=== PATIENT | female | born 2000 | race African-American/Black ===

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

== ENCOUNTER 2024-10-25 10:54 | Emergency (ER) | payer OTHER, SELFPAY ==
--- NOTE | ~2024-10-25 | XR_ITS ---
EXAMINATION: XR humerus LT DATE: 10/25/2024 13:30 INDICATION: Left upper limb injury and pain. TECHNIQUE: 3 views of left humerus were obtained. COMPARISON: None. FINDINGS: There is a comminuted fracture of distal humeral diaphysis. The main distal fracture fragme nt demonstrates 27 degrees palmar angulation, 1 cortical width posterior displacement, and 15 mm shor tening. Note that there is no orthogonal view. Joint spaces are normal. No elbow joint effusion. IMPRESSION: 1. Comminuted fracture of distal humeral diaphysis. Reviewed, dictated and finalized at location B.
--- NOTE | ~2024-10-25 | XR_ITS ---
EXAMINATION: XR wrist LT 2V DATE: 10/25/2024 13:31 INDICATION: Left wrist injury. TECHNIQUE: 2 views of left wrist were obtained. COMPARISON: None. FINDINGS: Alignment is normal. No fracture. Joint spaces are normal. IMPRESSION: 1. Normal left wrist. Reviewed, dictated and finalized at location B. IMPRESSION: 1. Normal left wrist.
--- NOTE | ~2024-10-25 | XR_ITS ---
EXAMINATION: XR elbow LT 2V DATE: 10/25/2024 13:30 INDICATION: Left upper limb injury and pain. TECHNIQUE: 2 views of left elbow were obtained. COMPARISON: None. FINDINGS: There is a comminuted fracture of humeral diaphysis. The main distal fracture fragment demo nstrates 27 degrees volar angulation and shortening. Joint spaces are normal. No elbow joint effusion . IMPRESSION: 1. Comminuted fracture of humeral diaphysis. Reviewed, dictated and finalized at location B.
[2024-10-25 11:03] VITALS: BP 107/78; PULSE 72; RESP 16; TEMP 36.6; O2SAT 99
--- NOTE | 2024-10-25 12:22 | ED.UPPEXIN ---
HPI - Extremity Injury (Upper) General Chief Complaint: Extremity Injury, Upper Stated Complaint: fall Time Seen by Provider: 10/25/24 12:02 History of Present Illness HPI narrative: 24-year-old female presenting for evaluation of left upper extremity injury while she slipped and fell forward into the shower. Did not hit her head or lose consciousness. EMS arrived and placed her into a same splint. 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 No medical history, no allergies. No pain medicines prior to arrival. No chest pain, difficulty breathing, headache, vision change, nausea or vomiting. Related Data Home Medications ?Medication ?Instructions ?Recorded ?Confirmed ?Last Taken ?Type citalopram 40 mg tablet mg 07/11/20 Unknown History norethindrone acetate 1 mg-ethinyl tablet 07/11/20 Unknown History estradiol 20 mcg tablet Allergies Allergy/AdvReac Type Severity Reaction Status Date / Time No Known Allergies Allergy Mild Verified 11/12/21 17:02 Review of Systems Review of Systems: As reviewed above in HPI Exam Narrative: GENERAL: Uncomfortable appearing in pain but not any acute distress, answering all questions. Awake alert. HEAD: [Normocephalic, atraumatic.] EYES: [PERRLA and EOMI.] ENT: Nares clear, no rhinorrhea or epistaxis. Mucous membranes moist. NECK: Supple. CHEST: [Clear to auscultation. No respiratory distress.] HEART: [Regular rate and rhythm]. No murmur heard. [Normal peripheral pulses.] ABDOMEN: [Soft, nondistended], [nontender], [No rigidity or guarding] EXTREMITIES: Same splint to the left upper extremity with tenderness to palpation over the left elbow and distal humerus. Wrist without any deformity. Research Nutritionist strength 5/5. 2+ radial pulse. Limitations in range of motion secondary to pain. Mild swelling appreciated in the elbow and upper arm. SKIN: Warm, dry, no rash. NEURO: [No focal deficits]. Alert and oriented [x3.] PSYCH: [Normal mood and affect.] Course Vital Signs Vital signs: Vital Signs Temperature 36.6 C 10/25/24 11:03 Pulse Rate 72 10/25/24 11:03 Respiratory Rate 16 10/25/24 11:03 Blood Pressure 107/78 10/25/24 11:03 Pulse Oximetry 99 10/25/24 11:03 Oxygen Delivery Room Air 10/25/24 11:03 Temperature 36.6 C 10/25/24 11:03 Pulse Rate 74 10/25/24 12:33 Respiratory Rate 18 10/25/24 12:33 Blood Pressure 114/75 10/25/24 15:01 Pulse Oximetry 97 10/25/24 15:01 Oxygen Delivery Room Air 10/25/24 11:03 Procedures Orthopedic Splinting/Casting Injury #1: Splinting/Casting Date: 10/25/24 Splinting/Casting Time: 14:00 Side: left Upper Extremity Injury Location: upper arm Splint: customized in ED (Coaptation splint) Pre-Procedure Neuro Vascular Exam: normal Post-Procedure Neuro Vascular Exam: normal MDM - Extremity Injury (Upper) MDM Narrative Medical decision making narrative: 24-year-old female presenting for mechanical fall in the shower with injury to her left upper extremity. She has tenderness and some swelling over the left upper extremity near the elbow and distal humerus. 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 Normal vital signs. No other appreciable injury or trauma. No head injury. No syncope. X-rays of the left wrist elbow and humerus were obtained and she was provide intramuscular dilaudid with analgesia obtained upon re-evaluation. Patient's x-ray shows a comminuted distal fracture of the left humeral diaphysis with dorsal angulation. Spoke to our orthopedic surgeon here who recommended transfer to a trauma center for evaluation and likely plating given the location and degree of angulation. Coaptation splint was applied, blood work was obtained, patient was provide analgesia, transfer center at [facility] spoken to, patient accepted as a direct ED to ED transfer under Dr. Mooney at [facility]. S ambulance arranged and patient left the department without further issue. Medical Records Attestation: I reviewed the patient's medical records. Lab Data Attestation: I reviewed the patient's lab results. 10/25/24 14:25 10/25/24 14:25 Labs: Lab Results 10/25/24 Range/Units 14:25 WBC 13.0 H (4.5-10.0) K/mm3 RBC 4.42 (4.2-5.4) M/mm3 Hgb 13.5 (12.0-15.0) g/dL Hct 40.4 (37.0-47.0) % MCV 91.4 (80-100) fl MCH 30.5 (26-34) pg MCHC 33.4 (32-36) g/dl RDW 11.9 (11.5-14.5) % Plt Count 260 (150-375) k/mm3 MPV 10.1 (7.4-10.4) fl Immature Gran % (Auto) 0.3 (0-0.5) % Neut % (Auto) 86.0 H (45.5-73.1) % Lymph % (Auto) 9.3 L (18.3-44.2) % Bulloch % (Auto) 3.9 (2.6-8.5) % Eos % (Auto) 0.2 (0-4.4) % Baso % (Auto) 0.3 (0.2-1.2) % Lymph # (Auto) 1.21 (0.9-3.2) K/mm3 Bulloch # (Auto) 0.5 (0.1-0.6) K/mm3 Eos # (Auto) 0.0 (0-0.3) K/mm3 Baso # (Auto) 0.0 (0.0-0.1) K/mm3 Abs Immat Gran (auto) 0.04 H (0.00-0.031) K/mm3 Absolute Neuts (auto) 11.2 H (1.3-6.7) K/mm3 Absolute Nucleated RBC 0.000 (0.0-0.012) K/mm3 Band Neutrophils % Not Reportable Nucleated RBC % 0.0 (0.0-0.2) % Platelet Estimate Adequate (Adequate) % Immature Plt Fraction 3.2 (0.9-11.2) % Schistocytes None seen PT 13.4 (11.1-14.7) Seconds INR 1.0 APTT 24.7 (22.3-36.8) Seconds Sodium 137 (137-145) mmol/L Potassium 4.2 (3.4-5.0) mmol/L Chloride 102 (98-107) mmol/L Carbon Dioxide 23 (22-30) mmol/L Anion Gap 12 (4-12) mmol/L BUN 9 (7-17) mg/dL Creatinine 0.47 L (0.7-1.0) mg/dL Estim Creat Clear Calc 177 ml/min Estimated GFR > 60 (59 - ) Glucose 110 (65-110) mg/dL Calcium 9.2 (8.4-10.2) mg/dL Total Bilirubin 0.8 (0.2-1.3) mg/dL AST 16 (14-36) U/L ALT 19 (6-35) U/L Alkaline Phosphatase 92 (38-126) U/L Total Protein 8.0 (6.3-8.2) g/dL Albumin 4.7 (3.5-5.1) g/dL Serum HCG, Qual Negative Imaging Data Attestation: I personally reviewed and interpreted this imaging study as follows: My impression: Impressions Elbow X-Ray 10/25/24 13:33 IMPRESSION: 1. Comminuted fracture of humeral diaphysis. Humerus X-Ray 10/25/24 13:34 IMPRESSION: 1. Comminuted fracture of distal humeral diaphysis. Wrist X-Ray 10/25/24 13:36 IMPRESSION: 1. Normal left wrist. Discharge Plan Discharge Clinical Impression: Fracture of distal end of left humerus Patient Disposition: Acute Care Hospital Condition: Stable Patient Language: Belarusian Prescriptions: No Action citalopram 40 mg tablet norethindrone ac-eth estradiol 1-20 mg-mcg tablet ondansetron 4 mg tablet,disintegrating 4 mg PO Q8H Qty: 14 0RF Follow-up/Referrals: May Longo APRN [Advanced Practice Nurse] -
[2024-10-25] MEDS: HYDROmorphone HCL INJ (*CRX) 1 MG/ML SYR IM (12:32)
[2024-10-25 12:33] VITALS: PULSE 74; RESP 18; O2SAT 100
[2024-10-25 12:35] VITALS: BP 120/80; O2SAT 99
[2024-10-25 12:47] VITALS: BP 122/82; O2SAT 99
[2024-10-25 13:00] VITALS: BP 118/82; O2SAT 97
--- OUTSIDE RECORDS SUMMARY | 2024-10-25 14:23 | XMS_ITS | Data Portability ---
Author Organization [facility] [place] Address [address] [place] [address] Assessment Encounter Date Assessment Date Assessment LastModified by Organization Details LastModified Time 10/04/2022 10/04/2022 benign breast exam, discussed benign findings. if enlarges significantly will call increased tenderness may be from IUD, avoid caffeine FU AIMEE [email or web address] Not available 10/23/2022 17:06:29 Plan of Treatment Reminders Order Date Submit Date Provider Last Modified By Organization Details Last Modified Time Details Appointments None recorded. Lab hbcab (hepatitis B core Ab) igm, serum 2022 023 [facility] (Lab), [address], [place], [address], 3 21:34:58 HBsAg (hepatitis B surface Ag), serum 2022 023 [facility] (Lab), [address], [place], [address], 3 21:34:57 hepatitis C virus Ab, serum 2022 023 [facility] (Lab), [address], [place], [address], 3 21:34:57 unlisted lab - HIV 1/2 antigen/ant ibody, reflex confirmatio n 2022 023 [facility] (Lab), [address], [place], [address], 3 21:34:57 RPR (rapid plasma reagin), serum 2022 023 [facility] (Lab), [address], [place], [address], 3 21:34:58 hbcab (hepatitis B core Ab) igm, serum 2022 023 [facility] (Lab), [address], [place], [address], 3 21:47:08 HBsAg (hepatitis B surface Ag), serum 2022 023 [facility] (Lab), [address], [place], [address], 3 21:47:07 hepatitis C virus Ab, serum 2022 023 [facility] (Lab), [address], [place], [address], 3 21:47:07 unlisted lab - HIV 1/2 antigen/ant ibody, reflex confirmatio n 2022 023 [facility] (Lab), [address], [place], [address], 3 21:47:07 RPR (rapid plasma reagin), serum 2022 023 [facility] (Lab), [address], [place], [address], 3 21:47:08 Referral None recorded. Procedures None recorded. Surgeries None recorded. Imaging None recorded. Medication Orders metronidazo le 500 mg tablet 2022 023 [id number], [address] [place], [address], 3 14:27:14 Patient TargetsNo targets recorded. Patient InstructionsNo instructions recorded. Reason for Referral None Reported. Results Created Date Observation Date Name Description Value Unit Range Abnormal Flag Note LastModifiedBy Organization Detail LastModifiedTime 06/08/20 22 06/08/2022 BHCG, QUANT ITATI VE B-HCG <0.2 mIU/m L This assay was perfo rmed using [employer] n reage nts and test kits. Value s obtai paty with other assay metho ds or kits canno t be used inter rehman eably . Refer ence Range s: Non-p regna nt, preme nopau renzo women : 0.0-5 .3 mIU/m L Postm enopa usal women : 0.0-7 .0 mIU/m L Noris l Pregn pantera: Gesta adele l Age bHCG Conc. - mIU/m L 3 Weeks 5.8 - 71.7 4 Weeks 9.5 - 750 5 Weeks 217-7 138 6 Weeks 158 - 31,79 5 7 Weeks 3,697 - 162,5 63 8 Weeks 32,06 5 - 149,5 71 9 Weeks 63,80 3 - 151,4 10 10 Weeks 46,50 9 - 186,9 77 12 Weeks 27,83 2 - 210,6 12 14 Weeks 13,95 0 - 62,53 0 15 Weeks 12,03 9 - 70,97 1 16 Weeks 9,040 - 56,45 1 17 Weeks 8,175 - 55,86 8 18 Weeks 8,099 - 58,17 6 Not Available [facility] [address] [place], [address], 06/09/2022 10:37:49 06/09/2006/09/2022 pregn pantera test, urine HCG negati ve Not Available [place] [address], [place], [address], 06/09/2022 16:08:32 09/27/19 23 09/27/2022 CT/GC AND TRICH OMONA S VAGIN UCHE (RRNA ), SWAB chlamydia trachomatis, PCR Negati ve negati ve Not Available [facility] (Lab) [address], [place], [address], 09/28/2022 18:00:16 09/27/19 23 09/27/2022 CT/GC AND TRICH OMONA S VAGIN UCHE (RRNA ), SWAB neisseria gonorrhoeae, PCR Negati ve negati ve Not Available [facility] (Lab) [address], [place], [address], 09/28/2022 18:00:16 09/27/19 23 09/27/2022 CT/GC AND TRICH OMONA S VAGIN UCHE (RRNA ), SWAB trichomonas vaginalis ribosomal RNA (rrna) Negati ve negati ve Not Available [facility] (Lab) [address], [place], [address], 09/28/2022 18:00:16 09/27/19 23 09/27/2022 VAGIN ITIS/ VAGIN OSIS, DNA PROBE jackson sp. detection, direct probe Negati ve negati ve Not Available [facility] (Lab) [address], [place], [address], 09/28/2022 18:00:17 09/27/19 23 09/27/2022 VAGIN ITIS/ VAGIN OSIS, DNA PROBE gardnerella vag. detection, direct probe Negati ve negati ve Not Available [facility] (Lab) [address], [place], [address], 09/28/2022 18:00:17 09/27/19 23 09/27/2022 VAGIN ITIS/ VAGIN OSIS, DNA PROBE trichomonas vag. detection, direct probe Negati ve negati ve Not Available [facility] (Lab) [address], [place], [address], 09/28/2022 18:00:17 09/27/19 23 09/27/2022 HIV 1/2 ANTIG EN/AN TIBOD Y, REFLE X CONFI RMATI ON HIV antigen/anti body Nonrea ctive nonrea ctive HIV-1 antig en and HIV-1 /HIV- 2 antib odies were not detec hardy. No labor atory evide nce of HIV infec tion. Not Available [facility] (Lab) [address], [place], [address], 09/28/2022 21:47:07 09/27/19 23 09/27/2022 HEPAT ITIS C ANTIB SYLVIA SCREE N, REFLE X TO CONFI RMATI ON hepatitis C antibody Non-re active non-re active Antib odies to HCV Not Detec hardy, does not exclu de the possi bilit y of expos ure to HCV. Not Available [facility] (Lab) [address], [place], [address], 09/28/2022 21:47:07 09/27/19 23 09/27/2022 HEPAT ITIS B SURFA CE ANTIG EN hepatitis B surface antigen Non-re active non-re active This assay was perfo rmed using [employer] reage nts and test kits. Value s obtai paty with other assay metho ds or kits canno t be used inter rehman eably . Not Available [facility] (Lab) [address], [place], [address], 09/28/2022 21:47:07 09/27/19 23 09/27/2022 RPR SCREE N/REF RENAE TITER /FTA RPR screen Nonrea ctive nonrea ctive Not Available [facility] (Lab) [address], [place], [address], 09/28/2022 21:47:08 09/27/19 23 09/27/2022 HEPAT ITIS B CORE, IGM hepatitis B core IgM antibody Negati ve negati ve Not Available [facility] (Lab) [address], [place], [address], 09/28/2022 21:47:08 02/03/20 23 02/02/2023 CT/GC AND TRICH OMONA S VAGIN UCHE (RRNA ), URINE chlamydia trachomatis, PCR Negati ve negati ve Not Available [facility] (Lab) [address], [place], [address], 02/03/2023 15:20:50 02/03/20 23 02/02/2023 CT/GC AND TRICH OMONA S VAGIN UCHE (RRNA ), URINE neisseria gonorrhoeae, PCR Negati ve negati ve Not Available [facility] (Lab) [address], [place], [address], 02/03/2023 15:20:50 02/03/20 23 02/02/2023 CT/GC AND TRICH OMONA S VAGIN UCHE (RRNA ), URINE trichomonas vaginalis ribosomal RNA (rrna) Negati ve negati ve Not Available [facility] (Lab) [address], [place], [address], 02/03/2023 15:20:50 05/06/20 23 05/06/2023 HEPAT ITIS B SURFA CE ANTIG EN hepatitis B surface antigen Non-re active non-re active This assay was perfo rmed using [employer] reage nts and test kits. Value s obtai paty with other assay metho ds or kits canno t be used inter rehman eably . Not Available [facility] (Lab) [address], [place], [address], 05/09/2023 21:34:57 05/06/20 23 05/06/2023 HEPAT ITIS C ANTIB SYLVIA SCREE N, REFLE X TO CONFI RMATI ON hepatitis C antibody Non-re active non-re active Antib odies to HCV Not Detec hardy, does not exclu de the possi bilit y of expos ure to HCV. Not Available [facility] (Lab) [address], [place], [address], 05/09/2023 21:34:57 05/06/20 23 05/06/2023 HIV 1/2 ANTIG EN/AN TIBOD Y, REFLE X CONFI RMATI ON HIV antigen/anti body Nonrea ctive nonrea ctive HIV-1 antig en and HIV-1 /HIV- 2 antib odies were not detec hardy. No labor atory evide nce of HIV infec tion. Not Available [facility] (Lab) [address], [place], [address], 05/09/2023 21:34:57 05/06/20 23 05/06/2023 RPR SCREE N/REF RENAE TITER /FTA RPR screen Nonrea ctive nonrea ctive Not Available [facility] (Lab) [address], [place], [address], 05/09/2023 21:34:58 05/06/20 23 05/06/2023 HEPAT ITIS B CORE, IGM hepatitis B core IgM antibody Negati ve negati ve Not Available [facility] (Lab) [address], [place], [address], 05/09/2023 21:34:58 Result Notes None recorded. Problems Name Problem SNOMED Code Status Onset Date Resolution Date Notes Provider Name and Address Organization Details Recorded Time No current problems or disabili ty 979244268 Active Kassandra grossman [facility] 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 1 09:46:18 Problem Notes None recorded. Procedures Surgical History Date Name Laterality Status Provider Name and Address Organization Details Recorded Time 2 IUD Insertion completed CELIO Roth [address], [place], [address], [facility] 06/09/2022 16:18:06 5 removal of silastic tubes from ear completed Kelsie Rodriguez [facility] 09/04/2021 11:13:25 5 tonsilectomy/ adenoids completed Kelsie Rodriguez [facility] 03/28/2020 00:13:43 tonsilectomy/ adenoids completed Kassandra Bynum [facility] 05/26/2022 11:49:09 Imaging Results None recorded. Procedure Notes None recorded. Medical Equipment None Reported. Allergies No known drug allergies Medications Name Sig Start Date Stop Date Status Note LastModified by Organization Details LastModified Time citalopra m 40 mg tablet TAKE ONE TABLET BY MOUTH DAILY AT 6PM 10/04 completed Patient states she is no longer taking Not Available Not Available Not Available fluconazo le 150 mg tablet TAKE 1 TABLET BY MOUTH NOW, REPEAT IN 7 DAYS 05/26 completed Not Available Not Available Not Available citalopra m 10 mg tablet take 1 tablet by oral route every day 08/03 completed Prescrib ed Elsewher e: Yes Loca tion: [facility] M odify By: shaheen cormier DateTime : 10/24/19 09:30:00 AM Not Available Not Available Not Available terconazo le 0.8 % vaginal cream Insert 1 applicat orful every day by vaginal route at bedtime for 3 days. 07/07 completed Not Available Not Available Not Available metronida zole 500 mg tablet TAKE 1 TABLET BY MOUTH EVERY 12 HOURS FOR 7 DAYS 10/04 completed Not Available Not Available Not Available nystatin- triamcino lone 100,000 unit/gram -0.1 % topical ointment Apply by topical route for 7 days. 05/26 completed Not Available Not Available Not Available citalopra m 20 mg tablet TAKE 1 AND 1/2 TABLETS BY MOUTH AT BEDTIME FOR 2 WEEKS THEN TAKE 1 TABLET BY MOUTH AT BEDTIME 08/03 completed Not Available Not Available Not Available triamcino lone acetonide 0.1 % topical ointment APPLY THIN COAT TO AFFECTED AREA TWICE A DAY 07/07 completed Not Available Not Available Not Available nystatin 100,000 unit/gram topical cream APPLY TO AFFECTED AREA TWICE A DAY 07/07 completed Not Available Not Available Not Available norethind jake acetate 1 mg-ethiny l estradiol 20 mcg tablet TAKE 1 TABLET BY MOUTH DAILY 08/03 completed Not Available Not Available Not Available sertralin e 50 mg tablet TAKE 1 TABLET BY MOUTH EVERY DAY active Not Available Not Available No t Available azithromy acosta 500 mg tablet TAKE 4 TABLETS BY MOUTH ONCE 09/04 completed Not Available Not Available Not Available Kyleena 17.5 mcg/24 hr (up to 5 years) 19.5 mg intrauter ine device Take 1 device by intraute rine route. 2021 active Not Available Not Available Not Avai lable Aurovela Fe 1-20 (28) 1 mg-20 mcg (21)/75 mg (7) tablet TAKE 1 TABLET BY MOUTH EVERY DAY 09/27 completed Not Available Not Available Not Available Vitals Date Recorded Body height Systolic blood pressure Diastolic blood pressure Provider Name and Address Organization Details Last Updated DateTime 07/07/2022 156.85 cm 107 mm[Hg] 72 mm[Hg] [facility] 07/07/2022 14:00:15 Date Recorded Body height Systolic blood pressure Diastolic blood pressure Provider Name and Address Organization Details Last Updated DateTime 09/27/2022 156.85 cm 118 mm[Hg] 78 mm[Hg] [facility] 09/27/2022 16:59:45 Date Recorded Body height Body mass index (BMI) Percentile per age and sex Body mass index (BMI) Body weight Systolic blood pressure Diastolic blood pressure Provider Name and Address Organization Details Last Updated DateTime 156.85 cm 98 % 38.7 kg/m2 29201.4 g 115 mm[Hg] 81 mm[Hg] Divine Ríos [facility] 3 14:26:42 Date Recorded Body height Body mass index (BMI) Percentile per age and sex Body mass index (BMI) Body weight Systolic blood pressure Diastolic blood pressure Provider Name and Address Organization Details Last Updated DateTime 3 156.85 cm 97 % 37.4 kg/m2 35336.2 5 g 121 mm[Hg] 82 mm[Hg] Geneva March [facility] 3 11:53:37 Date Recorded Body height Body mass index (BMI) Body mass index (BMI) Percentile per age and sex Body weight Systolic blood pressure Diastolic blood pressure Provider Name and Address Organization Details Last Updated DateTime 3 156.85 cm 37.4 kg/m2 97 % 77625.2 5 g 107 mm[Hg] 22 mm[Hg] Kassandra esparza [facility] 3 11:00:14 Social History Question Answer Notes LastModified by Organizat ion Details LastModified Time Tobacco Smoking Status Never Smoker Stacy grossman, [facility] 05/06/2023 10:42:09 Do You Have An Advance Directive? No Information not available 02/01/2022 What Is Your Level Of Alcohol Consumption? None Information not available 02/01/2022 How Many Years Have You Consumed Alcohol? 0 Information not available 02/01/2022 Are You Blind Or Do You Have Difficulty Seeing? No [email or web address] Information not available 08/03/2021 What Is Your Level Of Caffeine Consumption? Occasional Information not available 02/01/2022 How Much Tobacco Do You Chew? None Information not available 02/01/2022 In The 14 Days Before Symptom Onset, Have You Had Close Contact With A Laboratory-confir med COVID-19 While That Case Was Ill? No Information not available 02/01/2022 In The 14 Days Before Symptom Onset, Have You Had Close Contact With A Person Who Is Under Investigation For COVID-19 While That Person Was Ill? No Information not available 02/01/2022 Have You Been To An Area Known To Be High Risk For COVID-19? No Information not available 02/01/2022 Are You Deaf Or Do You Have Serious Difficulty Hearing? No Information not available 08/03/2021 What Type Of Diet Are You Following? REGULAR [email or web address] Information not available 08/03/2021 Do You Or Have You Ever Used E-cigarettes Or Vape? Never Used Electronic Cigarettes [email or web address] Information not available 05/06/2023 What Is The Highest Grade Or Level Of School You Have Completed Or The Highest Degree You Have Received? [id number] Information not available 02/01/2022 What Is Your Occupation? [employer] Information not available 02/01/2022 What Was The Date Of Your Most Recent Tobacco Screening? 09/04/2021 [email or web address] Information not available 05/06/2023 Do You Use Protection During Sex? No Information not available 02/01/2022 Do You Use Your Seat Belt Or Car Seat Routinely? Yes [email or web address] Information not available 09/04/2021 Do You Have Smoke And Carbon Monoxide Detectors In Your Home? Yes [email or web address] Information not available 09/04/2021 Do You Or Have You Ever Used Smokeless Tobacco? Never Used Smokeless Tobacco [email or web address] Information not available 05/06/2023 How Much Tobacco Do You Smoke? No [email or web address] Information not available 03/28/2020 Do You Feel Stressed (tense, Restless, Nervous, Or Anxious, Or Unable To Sleep At Night)? [id number] [email or web address] Information not available 09/04/2021 Do You Use Any Illicit Or Recreational Drugs? No Information not available 02/01/2022 Do You Use Sunscreen Routinely? Yes [email or web address] Information not available 09/04/2021 How Many Years Have You Smoked Tobacco? 0 Information not available 02/01/2022 Have You Used IV Drugs? No Information not available 02/01/2022 Sex: Female Functional Status Question Answer Note LastModified by Organizat ion Details LastModified Time Do you have difficulty walking or climbing stairs? No [email or web address] Information not available 05/06/2023 Are you able to walk? YESWOREST [email or web address] Information not available 08/03/2021 Are you able to care for yourself? Yes [email or web address] Information not available 05/06/2023 Do you have difficulty dressing or bathing? No [email or web address] Information not available 05/06/2023 What is your exercise level? Occasional [email or web address] Information not available 03/28/2020 Mental Status None recorded. Family History Relationship Description Onset Age of this Age Resolved Age Notes LastModified by Organization Details LastModified Time Maternal Aunt Benign neoplasm of brain [email or web address] Not available 2022 11:46:40 Maternal Aunt Blood coagulation disorder [email or web address] Not available 2022 11:46:41 Maternal Aunt Diabetes mellitus [email or web address] Not available 2022 11:54:50 Maternal Aunt Diabetes mellitus [email or web address] Not available 2022 11:54:53 Maternal Grandmother Benign neoplasm of brain [email or web address] Not available 2022 11:46:41 Maternal Grandmother Seizure disorder [email or web address] Not available 2022 11:46:41 Maternal Grandmother Diabetes mellitus [email or web address] Not available 2022 11:46:41 Maternal Grandmother Malignant tumor of breast [email or web address] Not available 2022 11:46:41 Maternal Grandmother Hypertensive disorder Not available 2022 11:46:41 Mother Malignant tumor of thyroid gland [email or web address] Not available 2022 11:46:41 Mother Cyst of ovary [email or web address] Not available 2022 11:46:41 Mother Posttraumati c stress disorder [email or web address] Not available 2022 11:46:41 Mother Diabetes mellitus [email or web address] Not available 2022 11:54:58 Mother Disorder of thyroid gland [email or web address] Not available 2022 11:46:41 Maternal Uncle Diabetes mellitus [email or web address] Not available 2022 11:46:41 Maternal Grandfather Malignant tumor of colon [email or web address] Not available 2022 11:46:41 Notes:Family history of Canc er, ovarian Maternal aunt: Bleeding disorder, Diabetes mellitus, brain tumor non cancerous Maternal grandfather: Seizure disorder, Cancer, colon Maternal grandmother: brain tumor no cancerous, Diabetes mellitus, Cancer, breast, Hypertension Maternal uncle: Diabetes mellitus Mother: PTSD, Cancer, thyroid, ovarian cyst, Diabetes mellitus Medical History Condition Response Allergies (Food, seasonal, environmental ) N Other N Drug/Latex Allergies/Reactions N Blood Transfusion N Breast Cancer N Dermatologic Disorders N Lung Disease N Defects or Inherited Disease N Breast Problem N Gestational Diabetes N Hematologic disorders N Anesthesia Complications N History of STI N Deep Vein Thrombosis N Polycystic ovary syndrome N Anxiety Disorder Y Arthritis N Polyps N Infertility N Acid Reflux (GERD) N History of abnormal pap N Cancer N Varicosities N Stroke N Neurologic/Epilepsy Y Endometriosis N High Cholesterol N Fibromyalgia N Headaches N Kidney Disease N Heart Problems N Thyroid Problems N Kidney or Bladder Problems N GI Problems N Eating Disorder N Anemia N Art (IVF or FET) N Psychiatric Illness Y Ovarian Cancer N Diabetes N Pulmonary (TB, Asthma) N Hepatitis/Liver Disease N No Past Medical History N Eczema N Urinary Tract Infection N Abuse/Domestic Violence N Asthma N Trauma/Violence N Depression/ depression Y Heart Disease N Pre-Eclampsia N Hypertension N Osteoporosis N Thrombophilias N Gynecological History Statement/Question Response Abnormal Pap N Flow Heavy Date of Last Mammogram Date of LMP 01/29/2023 N Was last menstrual period normal Y STIs/STDs N HPV Vaccine N Duration of Flow (days) 5 Current Control Method IUD Date of control 06/09/2022 Sexually Active? Y Menses Monthly Y Age of first menstrual cycle 11 Date of Last Pap Smear Sexual Problems? N LMP Definite N Obstetrics History GPAL:G 0 P 0 0 0 0 Past Encounters Encounter ID Performer Location Encounter Start Date Encounter Closed Date Diagnosis/Indication Diagnosis SNOMED-CT Code Diagnosis ICD10 Code Diagnosis Note [id number] Rosalva Costello CNM [place] [address] [address] 03/28/2020 10:36:00 03/28/2020 11:40:41 Surveillance of oral contraception 334534368 Z30.41 [id number] Rosalva Costello CNM [place] [address] [address] 08/03/2021 09:37:47 08/03/2021 11:10:57 Venereal disease screening 027684392 Z11.3 urine sent [facility] [id number] Z30.9 gave 5 samples of balcotra may have more if calls [id number] Rosalva Costello CNM [place] [address],[place] [address] 09/04/2021 10:49:24 09/04/2021 11:49:30 Venereal disease screening 582572005 Z11.3 std and affirm sent f/u pending results reviewed vulvar care [id number] CELIO Roth [place] [address],[place] [address] 02/01/2022 13:55:10 02/01/2022 14:49:57 Pain in pelvis 82142397 R10.2 Urine hCG (-) today. Patient would like a bhCG ordered.[place] ppy on OCP for controlSTI endocervic al testing sentVagini tis panel sentBlood STI testing orderedUA today (-)Patient would like a pelvic u/s done due to cramping, u/s ordered.En couraged patient to f/u with PCP about recent fatigue and nausea.RTC for pelvic u/s and f/u appointmen t. Time spent in visit is a total of 35 mins with at least 50% of visit consisting of counseling and review of plan of care. Fatigue 53077104 R53.83 Venereal d isease screening 222220548 Z11.3 Sexually t ransmitted infectious disease 6106510 A64 [id number] Aliya Krause [place] [address],[place] [address] 02/04/2022 13:45:53 02/04/2022 14:26:58 Pain in pelvis 23797693 R10.2 [id number] CELIO Roth [place] [address],[place] [address] 02/10/2022 11:42:54 02/10/2022 12:41:16 Pain in pelvis 69866156 R10.2 Pelvic pain has completely resolved, patient feeling well!We discussed normal pelvic u/s resultShe will call the office if symptoms return Time spent in visit is a total of 15 mins with at least 50% of visit consisting of counseling and review of plan of care. [id number] CELIO Roth [place] [address],[place] [address] 04/27/2022 15:40:36 04/27/2022 16:29:34 Vaginitis 86771169 N76.0 Suspect yeast on examVagini tis panel sentSTI endocervic al testing sentVulvar care guidelines discussed in-depthDi scontinue use of scented toilet paperRTC if symptoms persist past treatment Time spent in visit is a total of 15 mins with at least 50% of visit consisting of counseling and review of plan of care. Venereal d isease screening 436511043 Z11.3 [id number] [facility] [address],[place] [address] 05/26/2022 11:38:13 05/26/2022 15:12:44 Vaginitis 80320757 N76.0 Suspect BV/yeast on examRx sentVagini tis panel sentSTI endocervic al testing sentVulvar care guideline discussed. Discontinu e vagisil wash Contracept ion care management 245449264 Z30.9 Patient would like different form of BC, currently on OCPShe would like to proceed with Kyleena IUDR/B of IUD discussed and accepted by patient (perforati on, infection, etc)She will abstain from intercours e for 2 weeks, continue taking OCP. RTC in 2 weeks for bhcg and IUD insertion. Time spent in visit is a total of 35 mins with at least 50% of visit consisting of counseling and review of plan of care. Venereal d isease screening 216142191 Z11.3 [id number] Jeanette Kenyon [facility] [address],[place] [address] 06/09/2022 15:45:09 06/09/2022 16:25:12 Contraception care management 934247565 Z30.9 Insertion of intrauterine contraceptive device 77843428 Z30.430 She has been counseled on all of the r/b/a of placement of an intrauteri ne device that include but are not limited to uterine perforatio n, injury to cervix, vagina, bladder, and bowel.Risk s of bleeding due to injury or increased irregular bleeding due to progestin effect of the device. Risks of infection would be increased within the first 21 days of placement with concommita nt cervicitis . She understand s that the device will need to be removed in this instance due to increased risk of Pelvic inflammato ry disease. Patient is aware she is at higher risk for STD and if contracted she could lose her fertility. Pt is aware that if occurs that she should contact office immediatel y to rule out ectopic which could be life threatenin g. IUD will also need to be removed and this could cause miscarriag e. Patient also informed that in the event her strings are absent or embedded at the time of removal she may need to have the IUD surgically removed. She was informed of the above and properly consented. IUD placed w/o complicati on. Patient should return to office after next period to check for string placement. Patient to expect irregular bleeding but should be seen in the ED if bleeding increases to soaking a pad an hour for at least 2 hours. She verbalized understand ing.RTC in 1 month for IUD check [id number] CELIO Roth [place] [address] [address] 07/07/2022 13:44:25 07/07/2022 14:29:08 IUD check [id number] Z30.431 (+) IUD strings seen on examHappy with IUDRTC in 1 year or sooner if needed Time spent in visit is a total of 15 mins with at least 50% of visit consisting of counseling and review of plan of care. [id number] CELIO Roth [place] [address] [address] 09/27/2022 16:42:48 09/28/2022 11:12:36 Venereal disease screening [id number] Z11.3 Sexually t ransmitted infectious disease 7050672 A64 Vaginitis 29105938 N76.0 Suspect BV on examVagini tis panel sentSTI endocervic al testing sentBlood STI panel orderedV[facility] care guidelines discussed in-depth-C otton underwear only, Sleep with no underwear, no vaginal washes/soa ps, free and clear laundry products, etcRTC if symptoms persist past treatment Time spent in visit is a total of 25 mins with at least 50% of visit consisting of counseling and review of plan of care. [id number] Esme Kelly MD [place] [address] [address] 10/04/2022 13:55:34 10/05/2022 17:00:43 Mass of left breast [id number] N63.20 [id number] [facility] [address] [address] 02/02/2023 11:46:30 02/02/2023 14:52:59 Venereal disease screening [id number] Z11.3 Opts for urine std screenDecl ined serum std screen Counseled on safe sex, use of condoms encouraged , and partner treatment advised. Time spent in visit is a total of 15 mins with at least 50% of visit consisting of counseling and review of plan of care. [id number] Jeanette Kenyon ALEN [place] [address] [address] 05/06/2023 10:42:01 05/06/2023 11:44:57 Venereal disease screening [id number] Z11.3 gc/ct/tric h testing sentblood STI panel orderedsaf e sexual practices discussed, condom use encouraged will update pt with results when availablen otify the office with any symptoms Time spent in visit is a total of 20mins with at least 50% of visit consisting of counseling and review of plan of care. Sexually t ransmitted infectious disease [id number] A64 Health Concerns Section Related Observation LastModified by Organization Detai ls LastModified Time None Recorded Concern Status LastModified by Organization Details LastModified Time None Recorded Advance Directives Directive N: Payers Encounter Date Sequence Insurance Name Policy Number Policy Mcrae Covered Member ID Mcrae Member ID Guarantor Name 07/07/2022 1 [facility] ON OR AFTER 02/12/21 (MEDICAID REPLACEMENT - HMO) Arabella Plasencia [id number] Arabella Plasencia 09/27/2022 1 [facility] ON OR AFTER 02/12/21 (MEDICAID REPLACEMENT - HMO) Arabella Plasencia [id number] Arabella Plasencia 10/04/2022 1 [facility] ON OR AFTER 02/12/21 (MEDICAID REPLACEMENT - HMO) Arabella Luis Angel [id number] Arabella Luis Angel 02/02/2023 1 [facility] - DOS ON OR AFTER 21 (MEDICAID REPLACEMENT - HMO) Arabella Plasencia [id number] Arabella Luis Angel 05/06/2023 1 [facility] - DOS ON OR AFTER 21 (MEDICAID REPLACEMENT - HMO) Arabella Plasencia [id number] Arabella Luis Angel Notes Date Note Type Note Provider Name and Address Organization Details Recorded Time 07/07/2022 text/html Patient presents for IUD checkFeeling well since insertionNo AUB, denies any pelvic painShe would like a test today just for piece of mind CELIO Roth [address], [place], [address], [facility] 07/07/2022 14:14:00 09/27/2022 text/html 22yoPresents for evaluation of vaginal d/c and odorSymptoms started about 2 weeks agoFishy odor, white d/cSA with steady male partnerKyleena IUD for BCDenies any n/v, fevers, pelvic pain, or flu-like symptoms CELIO Roth [address], [place], [address], [facility] 09/28/2022 09:31:27 10/04/2022 text/html Pt is a 22yo G0 here for a breast problem. She complains of bilateral breast pain for months and noticed a left lump just today and it is more tender there. Kyleena since May. No other breast changes. Lump is pea sized. Last mammogram: RASHAUN Kelly MD [address], [place], [address], [facility] 10/23/2022 17:06:34 02/02/2023 text/html Here today for updated STD screen due to unfaithful partner.Neg sx's Neg pain of abd/pelvis/flankNeg urinary sx'sNeg GI sx'sNeg N/V/F/C/DNeg Vag d/c, odor, irritation, itching CELIO Lo- [address], [place], [address], [facility] 02/02/2023 14:28:23 05/06/2023 text/html 22yopresents for STI testingreceived a text for [employer] that she may have been exposed to gonorrheashe was last SA 01/2023no symptomsneg vaginal symptomsneg pelvic painneg n/v/f kyleena IUD for BC CELIO Roth [address], [place], [address], [facility] 05/06/2023 11:44:36 OBGyn Episode No OBEpisode recorded.
--- OUTSIDE RECORDS SUMMARY | 2024-10-25 14:23 | XMS_ITS | Clinical Summary ---
Author Organization [facility] Address [address] [place] [id number] Care Team Providers Care Program And Research Coordinator Name Role Phone May Longo [facility] Primary Care Provider + Allergies No known active allergies Medications No known medications Social History Tobacco Use Types Packs/Day Years Used Date Smoking Tobacco: Never Smokeless Tobacco: Never Comments Unknown Sex and Gender Information Value Date Recorded Sex Assigned at Not on file Legal Sex Female 6:51 PM CDT Gender Identity Not on file Sexual Orientation Not on file Last Filed Vital Signs Vital Sign Reading Time Taken Comments Blood Pressure 122/87 08/17/2022 1:21 PM POLE SETTER Pulse 70 08/17/2022 1:21 PM POLE SETTER Temperature 36.4 C (97.6 F) 08/17/2022 1:21 PM POLE SETTER Respiratory Rate 18 08/17/2022 1:21 PM POLE SETTER Oxygen Saturation 100% 08/17/2022 1:21 PM POLE SETTER Inhaled Oxygen Concentration - - Weight 97.5 kg (215 lb) 08/17/2022 1:21 PM POLE SETTER Height 157.5 cm (5' 2 ) 08/17/2022 1:21 PM POLE SETTER Body Mass Index 39.32 08/17/2022 1:21 PM POLE SETTER Plan of Treatment Health Maintenance Due Date Last Done Comments Annual Physical 2005 HPV Vaccines (2 - 2-dose series) 09/20/2014 03/20/2014 Meningococcal B Vaccine (1 of 2 - Standard) 2018 Hepatitis C 2020 DTaP, Tdap and Td Vaccines (7 - Td or Tdap) 03/20/2024 03/20/2014, 03/29/2007, 05/19/2005, Additional history exists COVID-19 Vaccine ( season) 2024 12/02/2020, 11/11/2020 Influenza Adult (#1) 2024 05/30/2020 Cervical Cancer Screening Pap Smear (Age 21 to 29) Every 3 Years 08/03/2024 08/03/2021 Cervical Cancer Screening 08/03/2024 Hepatitis B Vaccines Completed 07/13/2003, 02/12/2003, 2002, Additional history exists Pneumococcal Vaccine: Pediatrics (0 to 5 Years) and At-Risk Patients (6 to 64 Years) Aged Out 06/19/2004, 2002, 2002, Additional history exists No longer eligible based on patient's age to complete this topic Meningococcal Vaccine Completed 05/30/2020, 014 RSV Immunizations Under 20 Months Aged Out No longer eligible based on patient's age to complete this topic Insurance [employer] [place] [address] [address] Care Teams Program And Research Coordinator Relationship Specialty Start Date End Date May Longo, SAUSAGE MACHINE OPERATOR- [address] [address] PCP - General NURSE PRACTITIONER 08/15/21
--- OUTSIDE RECORDS SUMMARY | 2024-10-25 14:23 | XMS_ITS | Clinical Summary ---
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 Gender Identity Not on file Sexual Orientation Not on file Plan of Treatment Health Maintenance Due Date Last Done Comments Hepatitis C Virus (HCV) Screening 2002 Human Papillomavirus (HPV) Immunization (2 - 2-dose series) 09/20/2014 03/20/2014 Meningococcal B Immunization (1 of 2 - Standard) 2018 Pap Smear 2023 Influenza Immunization (#1) 2024 05/30/2020 SARS-COV-2 Immunization ( season) 2024 12/02/2020, 11/11/2020 Respiratory Syncytial Virus (RSV) Immunization (Adult) (1 - 1-dose 75+ series) 2077 Hepatitis B Immunization Completed 003, 02/12/2003, 2002, Additional history exists Pneumococcal Immunization Combined Aged Out 06/19/2004, 2002, 2002, Additional history exists No longer eligible based on patient's age to complete this topic Polio (IPV) Immunization Discontinued 007, 05/19/2005, 2002, Additional history exists Hepatitis A Immunization Discontinued 12/20/2007, 03/15 Measles Mumps Rubella (MMR) Immunization Discontinued 12/20/2007, 05/14/2003 Varicella Immunization Discontinued 12/20/2007, 2002 DTaP/Tdap/Td Immunization Discontinued 2013, 03/29/2007, 05/19/2005, Additional history exists TdaP Immunization Completed 03/20/2014 Meningococcal Immunization (ACWY) Completed 05/30/2020, 03/20/2014 Rotavirus Immunization Aged Out No lo nger eligible based on patient's age to complete this topic Insurance [employer] on file
--- OUTSIDE RECORDS SUMMARY | 2024-10-25 14:24 | XMS_ITS | Data Portability ---
Author Organization [facility] [email or web address], Main Office Address [address] [place] [address] Assessment No assessment recorded. Plan of Treatment Reminders Order Date Submit Date Provider Last Modified By Organization Details Last Modified Time Details Appointments None recorded. Lab lipid panel, serum 2022 023 [facility], [address] [place] [address], [address], 3 09:09:59 TSH, serum, reflex free T4 2022 023 [email or web address] [facility], [address] [place] [address], [address], 3 09:09:59 HbA1c (hemoglobin A1c), blood 2022 023 [email or web address] [facility], [address] [place] [address], [address], 3 09:09:58 CMP, serum or plasma 2022 023 [email or web address] [facility], [address] [place] [address], [address], 3 09:09:58 CBC w/ auto diff 2022 023 [email or web address] [facility], [address] [place], [address], 3 09:09:58 Referral None recorded. Procedures None recorded. Surgeries None recorded. Imaging home sleep study - *Please call patient to schedule* 2022 023 [facility], [address] [place], [address], 3 10:36:25 Medication Orders sertraline 50 mg tablet [address] [facility]Pharmacy #[id number], [address] [place], [address], 3 15:15:43 sertraline 50 mg tablet [address] [facility]/Pharmacy #[id number], [address] [place], [address], 3 16:23:36 Patient TargetsNo targets recorded. Patient Instructions Encounter Date Encounter Id Patient Instructions Last Modified By Organization Details Last Modified Time 10/27/2022 [id number] 6 week follow up depression/anxiet y, sleep study. Not available 10/27/2022 16:27:24 12/08/2022 [id number] 4 mo fu anxiety/depressio n/sleeping. Not available 12/08/2022 15:15:35 04/06/2023 [id number] FU in 6 mo for anxiety/depressio n/sleep apnea Not available 04/06/2023 11:04:44 Reason for Referral None Reported. Results Created Date Observation Date Name Description Value Unit Range Abnormal Flag Note LastModifiedBy Organization Detail LastModifiedTime 05/22/20 21 05/22/2021 PPD (abdullahi fied prote in deriv ative ), skin test TB Not Available [facility] Frank [address] [facility], [place], [address], 05/22/2021 11:47:22 08/16/19 22 08/15/2021 CT, angio gram, chest , w/ contr ast No observ ation record ed. [id number] [facility] (Lab) [facility] [place], [address], 10/13/2022 23:12:04 08/17/19 23 08/17/2022 XR, knee No observ ation record ed. [id number] [facility], [place], [address], 10/13/2022 23:12:04 11/17/19 23 11/10/2022 home sleep study No observ ation record ed. [facility] [address] [place], [address], 11/16/2022 10:36:25 12/07/19 23 11/10/2022 home sleep study No observ ation record ed. [facility] [address] [place], [address], 12/08/2022 18:25:03 01/08/20 23 01/04/2023 polys omnog brittany, diagn ostic , 6 yrs or older No observ ation record ed. Not Available 2022 21:45:38 Result Notes None recorded. Problems Name Problem SNOMED Code Status Onset Date Resolution Date Notes Provider Name and Address Organization Details Recorded Time Obsessive-com pulsive disorder 791651053 Active 2020 Not Available [facility] 3 23:07:58 Depressive disorder 06417727 Active 2020 Not Available [facility] 3 23:07:58 Posttraumatic stress disorder 27956667 Active 2020 Not Available [facility] 3 23:07:58 Anxiety 57540578 Active 2020 Not Available [facility] 3 23:07:58 Spasm of back muscles 648817169 Active 2022 May Longo NP [address] [facility], [address] [address], [place], [address] , [place] - [facility] 3 16:20:21 Sleep apnea 17654045 Active 2022 May Longo NP [address] [facility], [address], [place], [address] , [place] - [facility] [employer] 16:25:23 Notes:May Longo NP [facility] home sleep study 11/10/22 AI = 2 [facility] diagnostic sleep study 01/04/23 AI = 0.2, REM AI = 1 Medical History: Depression/OCD/PTSD/Anxiety Obesity Snoring Procedure History: IUD placement Problem Notes None recorded. Procedures Surgical History Date Name Laterality Status Provider Name and Address Organization Details Recorded Time Remove tonsils and adenoids completed May Longo NP [address] [facility], [facility] [address], [place], [address], [facility] [employer] [facility] [employer] [facility] 10/27/2022 16:24:58 Imaging Results Imaging Date Name Status LastModified by Organiz ation Details LastModified Time 08/17/2022 XR, knee completed [id number] [place], [address], 10/13/2022 23:12:04 08/15/2021 CT, angiogram, chest, w/ contrast completed [id number] [facility] (Lab) [address] [place], [address], 10/13/2022 23:12:04 11/10/2022 home sleep study completed [facility] [address] [place], [address], 11/16/2022 10:36:25 11/10/2022 home sleep study completed [facility] [address] [place], [address], 12/08/2022 18:25:03 01/04/2023 polysomnogram , diagnostic, 6 yrs or older completed Information not available 01/11/2023 21:45:38 Procedure Notes None recorded. Medical Equipment None Reported. Allergies No known drug allergies Medications Name Sig Start Date Stop Date Status Note LastModified by Organization Details LastModified Time citalopram 40 mg tablet TAKE ONE TABLET BY MOUTH DAILY AT 6PM 10/27 completed Not Available Not Available Not Available fluconazole 150 mg tablet TAKE 1 TABLET BY MOUTH NOW, REPEAT IN 7 DAYS 10/27 completed Not Available Not Available Not Available Tubersol 5 tub. unit/0.1 mL intradermal injection solution Inject 0.1 mL every day by intraderm al route for 1 day. 10/27 completed Not Available Not Available Not Available terconazole 0.8 % vaginal cream INSERT 1 APPLICATO RFUL VAGINALLY EVERY DAY AT BEDTIME FOR 3 DAYS 10/27 completed Not Available Not Available Not Available metronidazo le 500 mg tablet TAKE 1 TABLET BY MOUTH EVERY 12 HOURS FOR 7 DAYS 10/27 completed Not Available Not Available Not Available citalopram 20 mg tablet TAKE 1 AND 1/2 TABLETS BY MOUTH AT BEDTIME FOR 2 WEEKS THEN TAKE 1 TABLET BY MOUTH AT BEDTIME 05/22 completed Not Available Not Available Not Available triamcinolo ne acetonide 0.1 % topical ointment APPLY THIN COAT TO AFFECTED AREA TWICE A DAY 10/27 completed Not Available Not Available Not Available nystatin 100,000 unit/gram topical cream APPLY TO AFFECTED AREA TWICE A DAY 10/27 completed Not Available Not Available Not Available norethindro ne acetate 1 mg-ethinyl estradiol 20 mcg tablet TAKE 1 TABLET BY MOUTH DAILY 10/27 completed Not Available Not Available Not Available sertraline 50 mg tablet TAKE 1 TABLET BY MOUTH EVERY DAY active Not Available Not Available No t Available azithromyci n 500 mg tablet TAKE 4 TABLETS BY MOUTH ONCE 10/27 completed Not Available Not Available Not Available Aurovela Fe 1-20 (28) 1 mg-20 mcg (21)/75 mg (7) tablet TAKE 1 TABLET BY MOUTH EVERY DAY 05/22 completed Not Available Not Available Not Available Vitals Date Recorded Body mass index (BMI) Body height Oxygen saturation Oxygen saturation in Arterial blood by Pulse oximetry Heart rate Body temperature Body weight Systolic blood pressure Diastolic blood pressure Provider Name and Address Organization Details Last Updated DateTime 1 33.8 kg/m2 157.48 cm 99 % 99 % 79 /min 98.5 [degF] 11600.5 9 g 116 mm[Hg] 78 mm[Hg] Not Available [facility] 3 23:06:17 Date Recorded Body height Provider Name an d Address Organization Details Last Updated DateTime 08/26/2021 157.48 cm Not Available [facility] 3 23:06:18 Date Recorded Body height Body mass index (BMI) Body mass index (BMI) Percentile per age and sex Body weight Body temperature Heart rate Oxygen saturation Oxygen saturation in Arterial blood by Pulse oximetry Respiratory rate Systolic blood pressure Diastolic blood pressure Provider Name and Address Organization Details Last Updated DateTime 3 157.48 cm 38.8 kg/m2 98 % 62269.5 8 g 98.2 [degF] 88 /min 99 % 99 % 16 /min 102 mm[Hg] 70 mm[Hg] May Londono RN [facility] [email or web address] 3 15:59:19 Date Recorded Body height Body mass index (BMI) Body mass index (BMI) Percentile per age and sex Body weight Body temperature Respiratory rate Heart rate Oxygen saturation Oxygen saturation in Arterial blood by Pulse oximetry Pain severity - 0-10 verbal numeric rating [Score] - Reported Systolic blood pressure Diastolic blood pressure Provider Name and Address Organization Details Last Updated DateTime 3 157.48 cm 37.7 kg/m2 98 % 29436.7 3 g 97.7 [degF] 16 /min 73 /min 98 % 98 % 2 110 mm[Hg] 76 mm[Hg] May Londono RN [facility] [email or web address] 3 14:53:24 Date Recorded Body height Body mass index (BMI) Body mass index (BMI) Percentile per age and sex Body weight Body temperature Heart rate Respiratory rate Oxygen saturation Oxygen saturation in Arterial blood by Pulse oximetry Pain severity - 0-10 verbal numeric rating [Score] - Reported Systolic blood pressure Diastolic blood pressure Provider Name and Address Organization Details Last Updated DateTime 3 157.48 cm 37.9 kg/m2 98 % 62832.0 2 g 96.6 [degF] 58 /min 16 /min 98 % 98 % 0 116 mm[Hg] 80 mm[Hg] May Londono RN [facility] [email or web address] 3 14:05:42 Social History Question Answer Notes LastModified by Organizat ion Details LastModified Time Tobacco Smoking Status Never Smoker Not Available [facility] 10/13/2022 23:04:52 Do You Have An Advance Directive? No Information not available 04/06/2023 Do You Wear A Helmet When Biking? No [id number] Information not available 10/13/2022 Is Blood Transfusion Acceptable In An Emergency? Yes Information not available 04/06/2023 What Is Your Level Of Caffeine Consumption? Occasional [id number] Information not available 10/13/2022 What Is Your Code Status? Full Code Information not available 04/06/2023 In The 14 Days Before Symptom Onset, Have You Had Close Contact With A Laboratory-confir med COVID-19 While That Case Was Ill? No Information not available 12/08/2022 In The 14 Days Before Symptom Onset, Have You Had Close Contact With A Person Who Is Under Investigation For COVID-19 While That Person Was Ill? No Information not available 12/08/2022 Are You Currently Employed? Yes Information not available 12/08/2022 What Type Of Diet Are You Following? REGULAR [id number] Information not available 10/13/2022 What Is The Highest Grade Or Level Of School You Have Completed Or The Highest Degree You Have Received? [id number] [id number] Information not available 10/13/2022 What Is Your Occupation? [employer] Information not available 12/08/2022 Have There Been Any Changes To Your Family Or Social Situation? No Information no t available 04/06/2023 Do You Use Insect Repellent Routinely? No Information not available 12/08/2022 Where [facility] You Live? [facility] Information not available 12/08/2022 Do You Have A Medical Power Of Envelope Maker? No Information not available 04/06/2023 How Many Children Do You Have? 0 Information not available 12/08/2022 Do You Have Any Pets? Yes Information not available 12/08/2022 Do You Use Protection During Sex? Always Information not available 12/08/2022 What Is Your Relationship Status? Single [id number] Information not available 10/13/2022 Do You Use Your Seat Belt Or Car Seat Routinely? Yes [id number] Information not available 10/13/2022 Are You Sexually Active? Yes Information not available 12/08/2022 Do You Have Smoke And Carbon Monoxide Detectors In Your Home? Yes [id number].[id number] Information not available 10/13/2022 Are There Any Smokers In Your House? No Information not available 12/08/2022 Do You Participate In Social Media? No [id number] Information not available 10/13/2022 Do You Feel Stressed (tense, Restless, Nervous, Or Anxious, Or Unable To Sleep At Night)? [id number] Information not available 12/08/2022 Do You Use Any Illicit Or Recreational Drugs? No [id number] Information not available 10/13/2022 Do You Use Sunscreen Routinely? No Information not available 12/08/2022 Has Tobacco Cessation Counseling Been Provided? No [id number] Information not available 10/13/2022 Have You Recently Traveled Abroad? No Information not available 12/08/2022 Do You Have Any Dietary Restrictions? No [id number].[id number] Information not available 10/13/2022 Do You Or Have You Ever Used Any Other Forms Of Tobacco Or Nicotine? No [id number].[id number] Information not available 10/13/2022 Sex: Unknown Functional Status Question Answer Note LastModified by Organizat ion Details LastModified Time What is your exercise level? Occasional [id number] Information not available 10/13/2022 Mental Status None recorded. Family History Relationship Description Onset Age of this Age Resolved Age Notes LastModified by Organization Details LastModified Time Maternal Grandfather Malignant tumor of colon [id number] Not available 10/13/2022 23:05:36 Maternal Grandmother Malignant tumor of breast [id number] Not available 10/13/2022 23:05:36 Maternal Aunt Malignant tumor of breast [id number] Not available 10/13/2022 23:05:36 Mother Malignant tumor of thyroid gland [id number] Not available 10/13/2022 23:05:36 Mother Hypertensive disorder [id number] Not available 10/13/2022 23:05:36 Notes:Don't know dads sign Medical History Condition Response ANXIETY DISORDER Y DEPRESSION (INCLUDING POST ) Y INSOMNIA Y Gynecological History Statement/Question Response Flow Moderate Date of LMP 02/13/2023 STIs/STDs Y Dislike of Light during Menstrual Headac he N Do your menstrual headaches get severe N Duration of Flow (days) 3 Most Recent Mammogram Current Control Method IUD Age at Menarche 13 Breast Problems no How many live births 0 Date of Last Colonoscopy Frequency of Cycle (Q days) 28 Most Recent Bone Density Sexually Active? Y Do you get headaches during your period N Date of Last Pap Smear Discharge none Obstetrics History GPAL:G 0 P 0 0 0 0 Immunizations Vaccine Type Date Status Note Provider Nam e and Address Organization Details Recorded Time meningococcal ACWY, unspecified formulation 4 completed Not Available [facility] 10/13/2022 23:11:32 Tdap 4 completed Not Available [facility] 10/13/2022 23:11:32 HPV, unspecified formulation 4 completed Not Available [facility] 10/13/2022 23:11:33 varicella 8 completed Not Available [facility] 10/13/2022 23:11:33 Hep A, pediatric, unspecified formulation 8 completed Not Available [facility] 10/13/2022 23:11:33 MMR 8 completed Not Available [facility] 10/13/2022 23:11:33 Hep A, pediatric, unspecified formulation 7 completed Not Available [facility] 10/13/2022 23:11:33 IPV 7 completed Not Available [facility] 10/13/2022 23:11:33 DTaP 7 completed Not Available [facility] 10/13/2022 23:11:33 IPV 5 completed Not Available [facility] 10/13/2022 23:11:33 Hib, unspecified formulation 5 completed Not Available [facility] 10/13/2022 23:11:34 DTaP 5 completed Not Available [facility] 10/13/2022 23:11:34 pneumococcal conjugate PCV 7 4 completed Not Available [facility] 10/13/2022 23:11:34 Hep B, unspecified formulation 3 completed Not Available [facility] 10/13/2022 23:11:34 varicella 3 completed Not Available [facility] 10/13/2022 23:11:34 MMR 3 completed Not Available [facility] 10/13/2022 23:11:34 Hep B, unspecified formulation 3 completed Not Available [facility] 10/13/2022 23:11:34 pneumococcal conjugate PCV 7 3 completed Not Available [facility] 10/13/2022 23:11:35 Hib, unspecified formulation 3 completed Not Available [facility] 10/13/2022 23:11:35 DTaP 3 completed Not Available [facility] 10/13/2022 23:11:35 Hib, unspecified formulation 3 completed Not Available [facility] 10/13/2022 23:11:35 DTaP 3 completed Not Available [facility] 10/13/2022 23:11:35 IPV 3 completed Not Available [facility] 10/13/2022 23:11:35 IPV 2 completed Not Available [facility] 10/13/2022 23:11:35 Hib, unspecified formulation 2 completed Not Available [facility] 10/13/2022 23:11:36 DTaP 2 completed Not Available [facility] 10/13/2022 23:11:36 Hep B, unspecified formulation 2 completed Not Available [facility] 10/13/2022 23:11:36 Past Encounters Encounter ID Performer Location Encounter Start Date Encounter Closed Date Diagnosis/Indication Diagnosis SNOMED-CT Code Diagnosis ICD10 Code Diagnosis Note [id number] [facility] Frank [address] [place] [address] 05/22/2021 00:00:00 05/22/2021 11:57:53 [id number] [facility] Frank [address] [place] [address] 08/26/2021 00:00:00 08/26/2021 11:51:56 [id number] May Longo NP [address] [address] 10/27/2022 15:29:10 10/27/2022 16:35:48 Depressive disorder 85452871 F32.A Citalopram no longer works for her since used off and on from age 16 yo. Anxiety 36995689 F41.9 Sertraline 50 mg po daily. Fu in 6 weeks. Needs to see therapist for coping techniques . Spasm of back muscles 20 8419451 M62.830 Look online for upper back stretches. Anemia screening 0811481 07 Z13.0 Diabetes m ellitus screening 195179963 Z13.1 Thyroid di sorder screening 913078458 Z13.29 Hyperlipid emia screening 362542305 Z13.220 Sleep apnea 85254658 G47 .30 [id number] May Longo NP [address] [address] 12/08/2022 14:38:06 12/08/2022 15:18:07 Anxiety 35824287 F41.9 Sertraline 50 mg po daily. FU in 4 mo. [id number] May Longo NP [address] [address] 04/06/2023 13:56:08 04/06/2023 14:25:35 Anxiety 03996167 F41.9 Sertraline 50 mg po daily. FU in 4 mo. Sleep apnea 25055135 G47 .30 sleep study negative for sleep apnea. Depressive disorder 3548 9007 F32.A Citalopram no longer works for her since used off and on from age 16 yo.On sertraline 50 mg po daily. Health Concerns Section Related Observation LastModified by Organization Detai ls LastModified Time None Recorded Concern Status LastModified by Organization Details LastModified Time None Recorded Advance Directives Directive N: Payers Encounter Date Sequence Insurance Name Policy Number Policy Mcrae Covered Member ID Mcrae Member ID Guarantor Name 10/27/2022 1 [facility] - DOS ON OR AFTER 21 (MEDICAID REPLACEMENT - HMO) Arabella Plasencia [id number] Arabella Plasencia 12/08/2022 1 [facility] - DOS ON OR AFTER 21 (MEDICAID REPLACEMENT - HMO) Arabella Plasencia [id number] Arabella Plasencia 04/06/2023 1 [facility] - DOS ON OR AFTER 21 (MEDICAID REPLACEMENT - HMO) Arabella Plasencia [id number] Arabella Plasencia Notes Date Note Type Note Provider Name and Address Organization Details Recorded Time 10/27/2022 text/html Here to discuss depression and anxiety. Was on citalopram 40 mg po daily since age 16. Cut it cold turkey in november 2021. Was going to [facility]. Changed therapist 6 times and was tired doing that. However was told needed to see therapist to get to see psychiatrist. So did not go back. Feeling like meds needed as having trouble getting out of bed, having motivation. Feeling like she wants to lie down and sleep all day. Doesn't want to go out of the the house or see anyone. Believes she had been overstimulated with things at work and was having panic attack- new [employer] and lots of people quitting. Lack of structure. Not having predictable work day. Patient believes she is autistic and plans to go to a clinic for evaluation herself. Sleep apnea as child. Had T/A removed. Still snoring loud, fatigued, lack of motivation from being tired. May Longo NP [address], [address], [place], [address], [employer] 10/27/2022 16:28:18 12/08/2022 text/html Here for 6 week fu. Sleep study done at home- inconclusive. Getting in lab sleep study december 21. Excited to see what is going on. Anxiety/depression- Feeling much better and happier on the sertraline 50 mg po daily. Setting reminder to take daily. Has motivation and energy. May Longo NP [address], [address], [place], [address], [employer] 12/08/2022 15:16:22 04/06/2023 text/html Here for 4 mo fu on meds Anxiety/depression- Feeling better with sertraline 50 mg po daily. Feeling more positive outlook. Not as sad. Not tearful. Gets upset still, but not to severe as it was previously. Recently through a breakup. Found out boyfriend was cheating on her with several others. Has been good. 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 [employer]- Lives within 60 miles of school. Needs a note to not have to live on campus. Patient is concerned about dorms with mental health, wants to do good in class and have good rest. Not have emotional instability. Sleep apnea- never got results from sleep study. May Longo NP [address] [facility], [facility] [address], [place], [address], [place] - [facility] [employer] [facility] 04/06/2023 14:21:52 OBGyn Episode No OBEpisode recorded.
[2024-10-25 14:43] LABS: Prothrombin Time 13.4 Seconds (11.1-14.7)
[2024-10-25 14:44] LABS: Partial Thromboplastin Time 24.7 Seconds (22.3-36.8)
[2024-10-25 14:48] LABS: Basophils Percent Auto 0.3 % (0.2-1.2); Eosinophils Percent Auto 0.2 % (0-4.4); Hematocrit 40.4 % (37.0-47.0); Hemoglobin 13.5 g/dL (12.0-15.0); Immature Granulocyte Absolute 0.04 K/mm3 (0.00-0.031); Immature Granulocyte Percent A 0.3 % (0-0.5); Immature Platelet Fraction Pct 3.2 % (0.9-11.2); Lymphocytes Absolute Auto 1.21 K/mm3 (0.9-3.2); Lymphocytes Percent Auto 9.3 % (18.3-44.2); Mean Corpuscular HGB Conc 33.4 g/dl (32-36); Mean Corpuscular Hemoglobin 30.5 pg (26-34); Mean Corpuscular Volume 91.4 fl (80-100); Mean Platelet Volume 10.1 fl (7.4-10.4); Monocytes Absolute Auto 0.5 K/mm3 (0.1-0.6); Monocytes Percent Auto 3.9 % (2.6-8.5); Neutrophils Absolute Auto 11.2 K/mm3 (1.3-6.7); Platelet Count Result 260 k/mm3 (150-375); Red Blood Count 4.42 M/mm3 (4.2-5.4); Red Cell Distribution Width 11.9 % (11.5-14.5)
[2024-10-25 14:49] LABS: Alanine Aminotransferase 19 U/L (6-35); Albumin Level 4.7 g/dL (3.5-5.1); Alkaline Phosphatase 92 U/L (38-126); Anion Gap 12 mmol/L (4-12); Aspartate Amino Transferase 16 U/L (14-36); Bilirubin,Total 0.8 mg/dL (0.2-1.3); Blood Urea Nitrogen 9 mg/dL (7-17); Calcium 9.2 mg/dL (8.4-10.2); Carbon Dioxide 23 mmol/L (22-30); Chloride 102 mmol/L (98-107); Estimated CRCL calculation 177 ml/min; Estimated Glomerular Filt Rate > 60; Glucose 110 mg/dL (65-110); Potassium 4.2 mmol/L (3.4-5.0); Sodium 137 mmol/L (137-145)
[2024-10-25] MEDS: HYDROmorphone HCL INJ (*CRX) 1 MG/ML SYR 0.5 MG IV PUSH (14:52)
[2024-10-25 15:01] VITALS: BP 114/75; O2SAT 97
[2024-10-25 15:16] LABS: Platelet Estimate Adequate (Adequate); Schistocytes None Seen
[2024-10-25 15:21] LABS: SPREG INTERNAL CONTROL Positive; Serum Qual hCG Negative
== END 2024-10-25 15:40 | disposition short-term general hospital (02) ==
LOC: ANHED 12:52
PROVIDERS: Emergency Provider Student in an Organized Health Care Education/Training Program
DX: S49.192A Other physeal fracture of lower end of humerus, left arm, initial encounter for closed fracture (principal); W18.2XXA Fall in (into) shower or empty bathtub, initial encounter
CPT/HCPCS: 29105; 36415; 73060; 73070; 73100; 80053; 84703; 85025; 85055; 85610; 85730; 96372; 96374; 99285; A4565; J1171

== ENCOUNTER 2025-06-07 12:05 | Emergency (ER) | payer OTHER, SELFPAY ==
--- NOTE | ~2025-06-07 | XR_ITS ---
Examination: XR chest 2V Clinical History: CP Comparison: None Technique: PA and Lateral Findings: Cardiomediastinal silhouette normal size and configuration. Lungs clear. No acute bony abnormality. IMPRESSION: 1. No acute cardiopulmonary findings. Reviewed, dictated and finalized at location R.
--- OUTSIDE RECORDS SUMMARY | 2025-06-07 12:08 | XMS_ITS | Clinical Summary ---
Author Organization [facility] Address [address] [place] [address] Care Team Providers Care Head Of Physics Name Role Phone Donta, May Hobbs [facility] Primary Care Provider + Allergies No known active allergies Medications No known medications Social History Tobacco Use Types Packs/Day Years Used Date Smoking Tobacco: Never Smokeless Tobacco: Never Comments Unknown Sex and Gender Information Value Date Recorded Sex Assigned at Female 11/05/2024 7:28 AM CDT Legal Sex Female 6:51 PM CDT Gender Identity Female 11/05/2024 7:28 AM CDT Sexual Orientation Bisexual 11/05/2024 7: 28 AM CDT Last Filed Vital Signs Vital Sign Reading Time Taken Comments Blood Pressure 122/87 08/17/2022 1:21 PM YOUTH CORRECTIONS OFFICER Pulse 70 08/17/2022 1:21 PM YOUTH CORRECTIONS OFFICER Temperature 36.4 C (97.6 F) 08/17/2022 1:21 PM YOUTH CORRECTIONS OFFICER Respiratory Rate 18 08/17/2022 1:21 PM YOUTH CORRECTIONS OFFICER Oxygen Saturation 100% 08/17/2022 1:21 PM YOUTH CORRECTIONS OFFICER Inhaled Oxygen Concentration - - Weight 97.5 kg (215 lb) 08/17/2022 1:21 PM YOUTH CORRECTIONS OFFICER Height 157.5 cm (5' 2) 08/17/2022 1:21 PM YOUTH CORRECTIONS OFFICER Body Mass Index 39.32 08/17/2022 1:21 PM YOUTH CORRECTIONS OFFICER Plan of Treatment Health Maintenance Due Date Last Done Comments Annual Physical 2005 HPV Vaccines (2 - 2-dose series) 09/20/2014 03/20/2014 Meningococcal B Vaccine (1 of 2 - Standard) 2018 Hepatitis C 2020 DTaP, Tdap and Td Vaccines (7 - Td or Tdap) 03/20/2024 03/20/2014, 03/29/2007, 05/19/2005, Additional history exists Cervical Cancer Screening Pap Smear (Age 21 to 29) Every 3 Years 08/03/2024 08/03/2021 Cervical Cancer Screening 08/03/2024 COVID-19 Vaccine ( season) 2025 12/02/2020, 11/11/2020 Influenza Adult (#1) 2025 05/30/2020 Hepatitis B Vaccines Completed 07/13/2003, 02/12/2003, 2002, Additional history exists Pneumococcal Vaccine: Pediatrics (0 to 5 Years) and At-Risk Patients (6 to 49 Years) Aged Out 06/19/2004, 2002, 2002, Additional history exists No longer eligible based on patient's age to complete this topic Meningococcal Vaccine Completed 05/30/2020, 014 Hepatitis A Vaccines Aged Out No long er eligible based on patient's age to complete this topic RSV Immunizations Under 20 Months Aged Out No longer eligible based on patient's age to complete this topic Insurance [employer] [place] Care Teams Head Of Physics Relationship Specialty Start Date End Date May Longo, PARTITION NOTCHER- [address] [id number] PCP - General NURSE PRACTITIONER 08/15/21
--- OUTSIDE RECORDS SUMMARY | 2025-06-07 12:08 | XMS_ITS | Clinical Summary ---
Author Organization [facility] [employer] Address [address] [place] [address] Care Team Providers Care Assistant Refinery Operator Name Role Phone None, Physician Primary Care Provider Unavailabl e Source Comments [facility] [employer],non-owned Affiliates and Associated Physician Practices is amultiple site organization consisting of ambulatory clinics and hospital sitesin [place], [place], [place] and [place]. This disclosure is being madepursuant to the Care Everywhere program and may not contain all information available regarding this patient. Last updated 18.[facility] [employer] [employer] Allergies No known active allergies Medications * Be aware that medications may not be up to date on this document. Alwaysverify current medications with the patient. Cholecalciferol (VITAMELTS VITAMIN D) 1000 UNITS TBDP Take 1,000 Units by mouth once daily. 30 Tab 2 5 Active sertraline (Zoloft) 100 MG tablet Take 1 (one) tablet by mouth once daily 5 Active buPROPion XL 24hr (Wellbutrin-XL) 150 MG tablet Take 1 (one) tablet by mouth once daily 5 Active oxyCODONE, immediate release, (Roxicodone) 5 MG tabletIndicatio ns:Closed fracture of shaft of left humerus, unspecified fracture morphology, initial encounter Take 1 (one) tablet by mouth every 4 hours as needed 28 tablet 11/09/2024 9:21 AM CDT 5 Active Additional Information Patient not taking.Reported on 12/17/2024 acetaminophen (Tylenol) 500 MG tablet Take 2 (two) tablets by mouth every 6 hours Maximum allowable Acetaminophen amount = 4 Grams (4000 mg) / 24 hours. 90 tablet 1 11/09/2024 9:21 AM CDT Active aspirin EC (Ecotrin) 81 MG tablet Take 1 (one) tablet by mouth once daily 70 tablet 11/09/2024 9:21 AM CDT 5 Active diphenhydrAMINE (Benadryl Allergy) 25 MG capsule Take 1 (one) capsule by mouth every 6 hours as needed for Itching Active docusate sodium (Colace) 100 MG capsule Take 1 (one) capsule by mouth once daily 60 capsule 1 11/09/2024 9:21 AM CDT 5 Active polyethylene glycol 3350 (MiraLax) 17 g packet Take 17 (seventeen) g by mouth once daily 5 Active Additional Information Patient not taking.Reported on 12/17/2024 sennosides (Senokot) 8.6 MG tablet Take 2 (two) tablets by mouth at bedtime 60 tablet 1 11/09/2024 9:21 AM CDT 5 Active Additional Information Patient not taking.Reported on 12/17/2024 cyclobenzaprine (Flexeril) 10 MG tablet Take 1 (one) tablet by mouth 3 times daily as needed for Muscle Spasms 30 tablet 11/09/2024 9:21 AM CDT 5 Active Active Problems Problem Noted Date Diagnosed Date Fall, initial encounter 10/26/2024 Closed fracture of shaft of left humerus, unspecified fracture morphology, initial encounter 10/26/2024 Mild vitamin D deficiency 09/05/2014 Overweight 08/23/2014 Overview (06/22/2015): Encounters Date Type Department Care Team Description 2025 2:03 PM CDT - 2025 11:59 PM CDT Hospital Encounter [facility] DIAGNOSTIC RAD [facility] [address] [place] [address] Lina Minor, BIOMASS BOILER OPERATOR-HATCH TENDER Discharge Disposition: Home or Self Care 2025 1:45 PM CDT Office Visit [facility] [address] [place] [id number] Caprice Wheatley MD McCutchen, Kailey J, BIOMASS BOILER OPERATOR-LISANDRA Closed fracture of shaft of left humerus with routine healing, unspecified fracture morphology, subsequent encounter (Primary Dx) 2025 Travel 04/16/2025 Orders Only [facility] [address] [place] [id number] Lina Minor, LUCIA-LISANDRA Closed fracture of shaft of left humerus with routine healing, unspecified fracture morphology, subsequent encounter from Last 3 Months Family History Medical History Relation Name Comments Diabetes Father Hypercholesterolemia Father Hypertension Father Hypercholesterolemia Maternal Grandfather Diabetes Maternal Grandmother Hypercholesterolemia Maternal Grandmother Hypertension Maternal Grandmother Obesity Maternal Grandmother Develop ed overweight after pituitary tumor. Thyroid Disease Maternal Grandmother Eating Disorders Mother Had anorexi a as adolescent Obesity Mother Increased weigh t only since developed thyroid cancer. Thyroid Disease Mother Relation Name Status Comments Father Maternal Grandfather Maternal Grandmother Mother Social History Tobacco Use Types Packs/Day Years Used Date Smoking Tobacco: Never Tobacco Cessation:Counseling Given: Not Answered Alcohol Use Standard Drinks/Week Comments Not Currently 0 (1 standard drink = 0.6 oz pur e alcohol) AUDIT-C Answer Date Recorded Q1: How often do you have a drink containing alcohol? Never 11/08/2024 Q2: How many drinks containi ng alcohol do you have on a typical day when you are drinking? Patient does not drink Q3: How often do you have si x or more drinks on one occasion? Never 11/08/2024 PHQ-2 Answer Date Recorded Patient Health Questionnaire-2 Score 2 2025 Comments No Sex and Gender Information Value Date Recorded Sex Assigned at Female 10/28/2024 12:35 PM CDT Legal Sex Female 5:41 AM ENVELOPE STUFFER Gender Identity Gender Non-conforming 10/28/2024 12:35 PM CDT Sexual Orientation Not on file Last Filed Vital Signs Vital Sign Reading Time Taken Comments Blood Pressure 102/66 11/09/2024 5:48 PM CDT Pulse 102 11/09/2024 5:48 PM CDT Temperature 36.7 C (98 F) 11/09/2024 8:31 AM CDT Respiratory Rate 16 11/09/2024 8:31 AM CDT Oxygen Saturation 95% 11/09/2024 8:31 AM CDT Inhaled Oxygen Concentration - - Weight 103 kg (227 lb) 01/28/2025 9:49 AM CDT Height 157.5 cm (5' 2) 01/28/2025 9:49 AM CDT Body Mass Index 41.52 01/28/2025 9:49 AM CDT Plan of Treatment Health Maintenance Due Date Last Done Comments HPV VACCINE (1 - 3-dose series) 2017 CHLAMYDIA/GONORRHEA SCREENING 2018 MENINGOCOCCAL (Group B) VACCINE SHARED DECISION-MAKING (1 of 2 - Standard) 2018 HEPATITIS C SCREENING 05/08/2020 DTAP/TDAP/TD VACCINES (1 - Tdap) 2021 HEPATITIS B VACCINE (1 of 3 - 19+ 3-dose series) 2021 PAP SMEAR 2023 COVID-19 VACCINE (3 - 2024-2 6 season) 2025 12/02/2020, 11/11/2020 INFLUENZA VACCINE (#1) 2025 05/30/2020 ZOSTER VACCINE (1 of 2) 2052 HIV SCREENING Completed 05/06/2023 DEPRESSION SCREENING Completed 11/19/2024 HIB VACCINE Aged Out No longer eligi ble based on patient's age to complete this topic MENINGOCOCCAL GROUPS A/C/Y/W VACCINE Aged Out No longer eligible b ased on patient's age to complete this topic PNEUMOCOCCAL VACCINE Aged Out No long er eligible based on patient's age to complete this topic Goals Goal Patient Goal Type Associated Problems Recent Progress Patient-Stated? Author Mobility General No Ashly Romeo, RN Note: Expected end date: 01/11/2025 The goal is to maintain or improve your mobility at the optimum level for you. Interventions: Plan activities to conserve energy Mobility General No Apple Feliciano Note: Expected end date: WBAT The goal is to maintain or improve your mobility at the optimum level for you. Interventions: Perform independent activity per your ability Medical Devices Implanted Type Area Detention Officer Device Identifier Shelf Expiration Date Model / Serial / Lot Plate 10 Hl Precontr Lmt Cntct Tpr Head - Sna Implanted:Qty: 1 on 11/08/2024 by Caprice Wheatley MD at [facility] Left: El[employer] 06/14/2032 [id number] / NA / [id number] Screw 2.7mm 5mm 18mm Ft Cortx Slf-Tap - Sna Implanted:Qty: 1 on 11/08/2024 by Caprice Wheatley MD at [facility] Left: [employer] [id number] / NA / NA Screw 2.7mm 5mm 22mm 2.5mm Ft Slf-Tap - Sna Implanted:Qty: 1 on 11/08/2024 by Caprice Wheatley MD at [facility] Left: [employer] [id number] / NA / NA Screw 3.5mm 2.9mm 24mm T15 Ft Plv - Sna Implanted:Qty: 1 on 11/08/2024 by Caprice Wheatley MD at [facility] Left: [employer] [id number] / NA / NA Screw 3.5mm 2.9mm 26mm T15 Ft Slf-Tap - Sna Implanted:Qty: 2 on 11/08/2024 by Caprice Wheatley MD at [facility] Left: [employer] 212.109 / NA / NA Screw 3.5mm 6mm 22mm 2.5mm Ft Slf-Tap - Sna Implanted:Qty: 3 on 11/08/2024 by Caprice Wheatley MD at [facility] Left: [employer] 204.822 / NA / NA Screw 3.5mm 6mm 24mm 2.5mm Ft Slf-Tap - Sna Implanted:Qty: 1 on 11/08/2024 by Caprice Wheatley MD at [facility] Left: [employer] 204.824 / NA / NA Procedures Procedure Name Priority Date/Time Associated Diagnosis Comments XR HUMERUS LEFT 2VW OR MORE Routine 2025 2:09 PM CDT Closed fracture of shaft of left humerus with routine healing, unspecified fracture morphology, subsequent encounter from Last 3 Months Results * XR Humerus Left 2Vw or More (2025 2:09 PM CDT) Anatomical Region Laterality Modality Upper Extremity Radiographic Esme ging 2025 2:21 PM CDT Impressions 2025 2:22 PM CDT IMPRESSION: Unchanged Fracture alignment. > Interpreting Provider: Aime Kennedy MD on 2025 2:22 PM Narrative 2025 2:22 PM CDT PROCEDURE: XR HUMERUS LEFT 2VW OR MORE DATE/TIME OF EXAM: 2025 2:09 PM CLINICAL INFORMATION: None relevant/not provided if blank. Indication: S42.302D: Closed fracture of shaft of left humerus with routine healing, unspecified fracture morphology, subsequent encounter Additional History: COMPARISON: 01/28/2025. TECHNIQUE: Distal humeral shaft fracture fixation with a plate and screws is again demonstrated. The hardware is intact and the alignment is unchanged. Procedure Note Aime Kennedy MD - 2025 PROCEDURE: XR HUMERUS LEFT 2VW OR MORE DATE/TIME OF EXAM: 2025 2:09 PM CLINICAL INFORMATION: None relevant/not provided if blank. Indication: S42.302D: Closed fracture of shaft of left humerus withroutine healing, unspecified fracture morphology, subsequent encounter Additional History: COMPARISON: 01/28/2025. TECHNIQUE: Distal humeral shaft fracture fixation with a plate and screws is again demonstrated. The hardware is intact and the alignment is unchanged. IMPRESSION: Unchanged Fracture alignment. > Interpreting Provider: Aime Kennedy MD on 2025 2:22 PM Lina Minor BIOMASS BOILER OPERATOR-HATCH TENDER DIAGNOSTIC IMAGING O RDERABLES Final Result from Last 3 Months Insurance [facility] Advance Directives * Full Code (Latest Code Status on File) Date Activated Date Inactivated Comments 11/08/2024 11:39 AM 11/09/2024 8:13 PM Care Teams Assistant Refinery Operator Relationship Specialty Start Date End Date None, Physician PCP - General 10/25/24
--- NOTE | 2025-06-07 12:09 | ECG_ITS ---
Test Date: 2025-06-07 12:13:28 Measurements Intervals Allison Rate: 92 P: 50 TN: 160 QRS: 19 QRSD: 88 T: -24 QT: 343 QTc: 426 Interpretive Statements SINUS RHYTHM POSSIBLE LEFT ATRIAL ENLARGEMENT ST-T WAVE ABNORMALITY IN ANT/INF LEADS- CONSIDER ISCHEMIA ABNORMAL ECG No previous ECG available for comparison Electronically Signed On 06-07-2025 12:55:20 CDT by Marin Wolfe D.O.
[2025-06-07 12:11] VITALS: BP 117/68; PULSE 91; RESP 18; TEMP 36.8; O2SAT 100
[2025-06-07 13:19] LABS: Hematocrit 40.1 % (37.0-47.0); Hemoglobin 13.3 g/dL (12.0-15.0); Immature Granulocyte Percent A 0.3 % (0-0.5); Lymphocytes Absolute Auto 0.88 K/mm3 (0.9-3.2); Mean Corpuscular HGB Conc 33.2 g/dl (32-36); Mean Corpuscular Hemoglobin 29.9 pg (26-34); Mean Corpuscular Volume 90.1 fl (80-100); Nucleated Red Blood Cells Absolute Auto 0.000 K/mm3 (0.0-0.012); Nucleated Red Blood Cells Perc 0.0 % (0.0-0.2); Platelet Count Result 319 k/mm3 (150-375); Red Blood Count 4.45 M/mm3 (4.2-5.4); White Blood Count 7.5 K/mm3 (4.5-10.0)
[2025-06-07 13:30] LABS: INR 1.0; Prothrombin Time 13.6 Seconds (11.1-14.7)
[2025-06-07 13:31] LABS: Partial Thromboplastin Time 29.6 Seconds (22.3-36.8)
[2025-06-07] MEDS: SODIUM CHLORIDE 0.9% IV 1,000 ML 999 ML IV CONT (13:34)
--- OUTSIDE RECORDS SUMMARY | 2025-06-07 13:35 | XMS_ITS | Data Portability ---
Author Organization [facility], Main Office Address [address] [place] [address] Assessment No assessment recorded. Plan of Treatment Reminders Order Date Submit Date Provider Last Modified By Organization Details Last Modified Time Details Appointments None recorded. Lab lipid panel, serum 2022 023 [id number] [facility], [address] [place], [address], 3 09:09:59 TSH, serum, reflex free T4 2022 023 [id number] [facility], [address] [place] [address], [address], 3 09:09:59 HbA1c (hemoglobin A1c), blood 2022 023 [email or web address] [facility], [address] [place], [address], 3 09:09:58 CMP, serum or plasma 2022 023 [facility], [address] [place], [address], 3 09:09:58 CBC w/ auto diff 2022 023 [email or web address] [facility], [address] [place], [address], 3 09:09:58 Referral None recorded. Procedures None recorded. Surgeries None recorded. Imaging home sleep study - *Please call patient to schedule* 2022 023 [facility], [address] [place], [address], 3 10:36:25 Medication Orders sertraline 50 mg tablet 2022 023 [id number], [address] [place], [address], 3 15:15:43 sertraline 50 mg tablet 2022 023 [id number], [address] [place], [address], 3 16:23:36 Patient TargetsNo targets recorded. Patient InstructionsNo instructions recorded. Reason for Referral None Reported. Results Created Date Observation Date Name Description Value Unit Range Abnormal Flag Note LastModifiedBy Organization Detail LastModifiedTime 05/22/20 21 05/22/2021 PPD (abdullahi fied prote in deriv ative ), skin test TB Not Available [facility] [address], [place], [address], 05/22/2021 11:47:22 08/16/19 22 08/15/2021 CT, angio gram, chest , w/ contr ast No observ ation record ed. [id number] [facility] (Lab) [address] [place], [address], 10/13/2022 23:12:04 08/17/19 23 08/17/2022 XR, knee No observ ation record ed. [id number] [facility], [place], [address], 10/13/2022 23:12:04 11/17/19 23 11/10/2022 home sleep study No observ ation record ed. [facility] [address] [place], [address], 11/16/2022 10:36:25 12/07/19 23 11/10/2022 home sleep study No observ ation record ed. [facility] [address] [place], [address], 12/08/2022 18:25:03 01/08/20 23 01/04/2023 polys omnog brittany, diagn ostic , 6 yrs or older No observ ation record ed. Not Available 2022 21:45:38 Result Notes None recorded. Problems Name Problem SNOMED Code Status Onset Date Resolution Date Notes Provider Name and Address Organization Details Recorded Time Obsessive-co mpulsive disorder 435452105 Active 2020 Not Available [facility] 3 23:07:58 Depressive disorder 81518164 Active 2020 Not Available [facility] 3 23:07:58 Post-traumat ic stress disorder 55041708 Active 2020 Not Available [facility] 3 23:07:58 Anxiety 13654395 Active 2020 Not Available [facility] 3 23:07:58 Spasm of back muscles 769585823 Active 2022 May Longo NP [address], [address] , [employer] 3 16:20:21 Sleep apnea 11900448 Active 2022 May Longo NP [address], [address] , [employer] [facility] 3 16:25:23 Notes:May Longo NP [facility] home sleep study 11/10/22 AI = [address] [facility] diagnostic sleep study 01/04/23 AI = 0.2, REM AI = 1 Medical History: Depression/OCD/PTSD/Anxiety Obesity Snoring Procedure History: IUD placement Problem Notes None recorded. Procedures Surgical History Date Name Laterality Status Provider Name and Address Organization Details Recorded Time Remove tonsils and adenoids completed May Longo NP [address] [facility] [address], [place], [address], [place] [facility] 10/27/2022 16:24:58 Imaging Results None recorded. Procedure Notes None [...] Not Available Vitals Date Recorded Body height Provider Name an d Address Organization Details Last Updated DateTime 08/26/2021 157.48 cm Not Available [facility] 3 23:06:18 Date Recorded Body height Body mass index (BMI) Body mass index (BMI) [Percentile] Per age and sex Body weight Body temperature Heart rate Oxygen saturation Oxygen saturation in Arterial blood by Pulse oximetry Respiratory rate Systolic And Diastolic Provider Name and Address Organization Details Last Updated DateTime 3 157.48 cm 38.8 kg/m2 98 % 95518.5 8 g 98.2 [degF] 88 /min 99 % 99 % 16 /min 102/70 mm[Hg] May Londono RN [facility] 3 15:59:19 Date Recorded Body height Body mass index (BMI) Body mass index (BMI) [Percentile] Per age and sex Body weight Body temperature Respiratory rate Heart rate Oxygen saturation Oxygen saturation in Arterial blood by Pulse oximetry Pain severity - 0-10 verbal numeric rating [Score] - Reported Systolic And Diastolic Provider Name and Address Organization Details Last Updated DateTime 3 157.48 cm 37.7 kg/m2 98 % 02656.7 3 g 97.7 [degF] 16 /min 73 /min 98 % 98 % 2 110/76 mm[Hg] May Londono RN [facility] 3 14:53:24 Date Recorded Body height Body mass index (BMI) Body mass index (BMI) [Percentile] Per age and sex Body weight Body temperature Heart rate Respiratory rate Oxygen saturation Oxygen saturation in Arterial blood by Pulse oximetry Pain severity - 0-10 verbal numeric rating [Score] - Reported Systolic And Diastolic Provider Name and Address Organization Details Last Updated DateTime 3 157.48 cm 37.9 kg/m2 98 % 15482.0 2 g 96.6 [degF] 58 /min 16 /min 98 % 98 % 0 116/80 mm[Hg] May Londono RN [facility] 3 14:05:42 Date Recorded Body mass index (BMI) Body height Oxygen saturation Oxygen saturation in Arterial blood by Pulse oximetry Heart rate Body temperature Body weight Systolic And Diastolic Provider Name and Address Organization Details Last Updated DateTime 1 33.8 kg/m2 157.48 cm 99 % 99 % 79 /min 98.5 [degF] 79707.5 9 g 116/78 mm[Hg] Not Available [facility] 23:06:17 Social History Question Answer Notes LastModified by Organizat ion Details LastModified Time Tobacco Smoking Status Never Smoker Not Available [facility] 10/13/2022 23:04:52 Do You Have An Advance Directive? No Information not available 04/06/2023 Do You Wear A Helmet When Biking? No [id number] Information not available 10/13/2022 Is Blood Transfusion Acceptable In An Emergency? Yes Information not available 04/06/2023 What Is Your Level Of Caffeine Consumption? Occasional [id number] Information not available 10/13/2022 What Is Your [...] Was Ill? No Information not available 12/08/2022 What Type Of Diet Are You Following? REGULAR [id number] Information not available 10/13/2022 What Is The Highest Grade Or Level Of School You Have Completed Or The Highest Degree You Have Received? [id number] [id number] Information not available 10/13/2022 Have There Been Any Changes To Your Family Or Social Situation? No Information no t available 04/06/2023 Do You Use Insect Repellent Routinely? No Information not available 12/08/2022 Where Do You Live? [facility] Information not available 12/08/2022 Do You Have A Medical Power Of C D Area Supervisor? No Information not available 04/06/2023 How Many Children Do You Have? 0 Information not available 12/08/2022 Do You Have Any Pets? Yes Information not available 12/08/2022 Do You Use Protection During Sex? Always Information not available 12/08/2022 What Is Your Relationship Status? Single [id number] Information not available 10/13/2022 Do You Use Your Seat Belt Or Car Seat Routinely? Yes [id number] Information not available 10/13/2022 Are You Sexually Active? Yes Information not available 12/08/2022 Do You Have Smoke And Carbon Monoxide Detectors In Your Home? Yes [id number].[id number] Information not available 10/13/2022 Are There Any Smokers In Your House? No Information not available 12/08/2022 Do You Participate In Social Media? No [id number].224140 [id number] Information not available 10/13/2022 Do You Use Sunscreen Routinely? No Information not available 12/08/2022 Has Tobacco Cessation Counseling Been Provided? No [id number].[id number] 3309 Information not available 10/13/2022 Have You Recently Traveled Abroad? No Information not available 12/08/2022 Do You Have Any Dietary Restrictions? No [id number].[id number] 3041 Information not available 10/13/2022 Sex: Unknown Functional Status Question Answer Note LastModified by [email or web address] ion Details LastModified Time Do you use any illicit or recreational drugs? No [id number] Information not available 10/13/2022 Do you or have you ever used any other forms of tobacco or nicotine? No MIGRATION.[id number] 026 Information not available 10/13/2022 Are you currently employed? Yes Information not available 12/08/2022 What is your occupation? [employer] Information not available 12/08/2022 What is your exercise level? Occasional [id number] Information not available 10/13/2022 Mental Status Question Answer Note LastModified by Organization D etails LastModified Time Do you feel stressed (tense, restless, nervous, or anxious, or unable to sleep at night)? [id number] Information not available 12/08/2022 Family History Relationship Description Onset Age of this Age Resolved Age Notes LastModified by Organization Details LastModified Time Maternal Grandfather Malignant neoplasm of colon [id number] Not available 10/13/2022 23:05:36 Maternal Grandmother Malignant neoplasm of breast [id number].057 [id number] Not available 10/13/2022 23:05:36 Maternal Aunt Malignant neoplasm of breast [id number].630 [id number] Not available 10/13/2022 23:05:36 Mother Malignant neoplasm of thyroid gland MIGRATION.265 [id number] Not available 10/13/2022 23:05:36 Mother Hypertensive disorder [id number].[id number] Not available 10/13/2022 23:05:36 Notes:Don't know dads [...] ACWY, unspecified formulation 4 completed Not Available [facility] 10/13/2022 23:11:32 Tdap 4 completed Not Available [facility] 10/13/2022 23:11:32 HPV, unspecified formulation 4 completed Not Available [facility] 10/13/2022 23:11:33 varicella 8 completed Not Available [facility] 10/13/2022 23:11:33 Hep A, pediatric, unspecified formulation 8 completed Not Available [facility] 10/13/2022 23:11:33 MMR 8 completed Not Available [facility] 10/13/2022 23:11:33 Hep A, pediatric, unspecified formulation 7 completed Not Available [facility] 10/13/2022 23:11:33 IPV 7 completed Not Available [facility] 10/13/2022 23:11:33 DTaP 7 completed Not Available [facility] 10/13/2022 23:11:33 IPV 5 completed Not Available [facility] 10/13/2022 23:11:33 Hib, unspecified formulation 5 completed Not Available [facility] 10/13/2022 23:11:34 DTaP 5 completed Not Available [facility] 10/13/2022 23:11:34 pneumococcal conjugate PCV 7 4 completed Not Available [facility] 10/13/2022 23:11:34 Hep B, unspecified formulation 3 completed Not Available [facility] 10/13/2022 23:11:34 varicella 3 completed Not Available [facility] 10/13/2022 23:11:34 MMR 3 completed Not Available [facility] 10/13/2022 23:11:34 Hep B, unspecified formulation 3 completed Not Available [facility] 10/13/2022 23:11:34 pneumococcal conjugate PCV 7 3 completed Not Available [facility] 10/13/2022 23:11:35 Hib, unspecified formulation 3 completed Not Available [facility] 10/13/2022 23:11:35 DTaP 3 completed Not Available [facility] 10/13/2022 23:11:35 Hib, unspecified formulation 3 completed Not Available [facility] 10/13/2022 23:11:35 DTaP 3 completed Not Available [facility] 10/13/2022 23:11:35 IPV 3 completed Not Available [facility] 10/13/2022 23:11:35 IPV 2 completed Not Available [facility] 10/13/2022 23:11:35 Hib, unspecified formulation 2 completed Not Available [facility] 10/13/2022 23:11:36 DTaP 2 completed Not Available [facility] 10/13/2022 23:11:36 Hep B, unspecified formulation 2 completed Not Available [facility] 10/13/2022 23:11:36 Past Encounters Encounter ID Performer Location Encounter Start Date Encounter Closed Date Diagnosis/Indication Diagnosis SNOMED-CT Code Diagnosis ICD10 Code Diagnosis IMO Codes Diagnosis Note [id number] Kyle Turcios MD [address] [address] 05/22/2021 00:00:00 05/22/2021 11:57:53 [id number] Kyle Turcios MD [address] [address] 08/26/2021 00:00:00 08/26/2021 11:51:56 [id number] May Longo NP [address] [address] 10/27/2022 15:29:10 10/27/2022 16:35:48 Depressive disorder 21165531 F32.A Citalopram no longer works for her since used off and on from age 16 yo. Anxiety 11965572 F41.9 Sertraline 50 mg po daily. Fu in 6 weeks. Needs to see therapist for coping techniques . Spasm of back muscles 20 0016001 M62.830 Look online for upper back stretches. Anemia screening 6597957 07 Z13.0 Diabetes m ellitus screening 382357675 Z13.1 Thyroid di sorder screening 693443870 Z13.29 Hyperlipid emia screening 451085351 Z13.220 Sleep apnea 98630989 G47 .30 [id number] May Longo NP [address] [address] 12/08/2022 14:38:06 12/08/2022 15:18:07 Anxiety 07978219 F41.9 Sertraline 50 mg po daily. FU in 4 mo. [id number] May Longo NP [address] [address] 04/06/2023 13:56:08 04/06/2023 14:25:35 Anxiety 67373794 F41.9 Sertraline 50 mg po daily. FU in 4 mo. Sleep apnea 96719201 G47 .30 sleep study negative for sleep apnea. Depressive disorder 3548 9007 F32.A Citalopram no longer works for her since used off and on from age 16 yo.On sertraline 50 mg po daily. Health Concerns Section Related Observation LastModified by Organization Detai ls LastModified Time None Recorded Concern Status LastModified by Organization Details LastModified Time None Recorded Advance Directives Directive N: Payers Insurance Date Sequence Insurance Name Policy Number Policy Mcrae Covered Member ID Mcrae Member ID Guarantor Name 04/06/2023 1 [place] DEPARTMENT OF PUBLIC AID Arabella Luis Angel [id number] Arabella Luis Angel 10/01/2024 1 [facility] - DOS ON OR AFTER 21 (MEDICAID REPLACEMENT - HMO) Arabella Luis Angel [id number] Arabella Luis Angel Notes Date Note Type [...] from being tired. May Longo NP [address], [place], [address], [facility] 10/27/2022 16:28:18 12/08/2022 text/html Here for 6 week fu. Sleep study done at home- inconclusive. Getting in lab sleep study december 21. Excited to see what is going on. Anxiety/depression- Feeling much better and happier on the sertraline 50 mg po daily. Setting reminder to take daily. Has motivation and energy. May Longo NP [address], [place], [address], [facility] [employer] [facility] 12/08/2022 15:16:22 04/06/2023 text/html Here for 4 mo fu on meds Anxiety/depression- Feeling better with sertraline 50 mg po daily. Feeling more positive outlook. Not as sad. Not tearful. Gets upset still, but not to severe as it was previously. Recently through a breakup. Found out boyfriend was cheating on her with several others. Has been good. 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 Needs a note to not have to live on campus. Patient is concerned about dorms with mental health, wants to do good in class and have good rest. Not have emotional instability. Sleep apnea- never got results from sleep study. May Longo NP [address] [facility], [address], [place], [address], [employer] 04/06/2023 14:21:52 OBGyn Episode No OBEpisode recorded.
--- OUTSIDE RECORDS SUMMARY | 2025-06-07 13:35 | XMS_ITS | Data Portability ---
Author Organization [facility] Address [address] [place] [address] Assessment Encounter Date Assessment Date Assessment LastModified by Organization Details LastModified Time 10/04/2022 10/04/2022 benign breast exam, discussed benign findings. if enlarges significantly will call increased tenderness may be from IUD, avoid caffeine FU AIMEE [email or web address] Not available 10/23/2022 17:06:29 Plan of Treatment Reminders Order Date Submit Date Provider Last Modified By Organization Details Last Modified Time Details Appointments None recorded. Lab hbcab (hepatitis B core Ab) igm, serum 2022 023 [facility] (Lab), [address] [place], [address], 3 21:34:58 HBsAg (hepatitis B surface Ag), serum 2022 023 [facility] (Lab), [address] [place], [address], 3 21:34:57 hepatitis C virus Ab, serum 2022 023 [facility] (Lab), [address] [place], [address], 3 21:34:57 unlisted lab - HIV 1/2 antigen/ant ibody, reflex confirmatio n 2022 023 [facility] (Lab), [address], [place], [address], 3 21:34:57 RPR (rapid plasma reagin), serum 2022 023 [facility] (Lab), [address], [place], [address], 3 21:34:58 hbcab (hepatitis B core Ab) igm, serum 2022 023 [facility] (Lab), [address], [place], [address], 3 21:47:08 HBsAg (hepatitis B surface Ag), serum 2022 023 [facility] (Lab), [address], [place], [address], 3 21:47:07 hepatitis C virus Ab, serum 2022 023 [facility] (Lab), [address], [place], [address], 3 21:47:07 unlisted lab - HIV 1/2 antigen/ant ibody, reflex confirmatio n 2022 023 [facility] (Lab), [address], [place], [address], 3 21:47:07 RPR (rapid plasma reagin), serum 2022 023 [facility] (Lab), [address], [place], [address], 3 21:47:08 Referral None recorded. Procedures None recorded. Surgeries None recorded. Imaging None recorded. Medication Orders metronidazo le 500 mg tablet 2022 023 [id number], [address] [place], [address], 3 14:27:14 Patient TargetsNo targets recorded. Patient [...] Weeks 8,099 - 58,17 6 Not Available [facility] Infect[facility] [address] [place], [address], 06/09/2022 10:37:49 06/09/20 22 06/09/2022 pregn pantera test, urine HCG negati ve Not Available [facility] [address], [place], [address], 06/09/2022 16:08:32 09/27/19 23 09/27/2022 CT/GC AND TRICH OMONA S VAGIN UCHE (RRNA ), SWAB chlamydia trachomatis, PCR Negati ve negati ve Not Available [facility] (Lab) [address], [place], [address], 09/28/2022 18:00:16 09/27/19 23 09/27/2022 CT/GC AND TRICH OMONA S VAGIN UCHE (RRNA ), SWAB neisseria gonorrhoeae, PCR Negati ve negati ve Not Available [facility] (Lab) [address], [place], [address], 09/28/2022 18:00:16 09/27/19 23 09/27/2022 CT/GC AND TRICH OMONA S VAGIN UCHE (RRNA ), SWAB trichomonas vaginalis ribosomal RNA (rrna) Negati ve negati ve Not Available [facility] (Lab) [address], [place], [address], 09/28/2022 18:00:16 09/27/19 23 09/27/2022 VAGIN ITIS/ VAGIN OSIS, DNA PROBE jackson sp. detection, direct probe Negati ve negati ve Not Available [facility] (Lab) [address], [place], [address], 09/28/2022 18:00:17 09/27/19 23 09/27/2022 VAGIN ITIS/ VAGIN OSIS, DNA PROBE gardnerella vag. detection, direct probe Negati ve negati ve Not Available [facility] (Lab) [address], [place], [address], 09/28/2022 18:00:17 09/27/19 23 09/27/2022 VAGIN ITIS/ VAGIN OSIS, DNA PROBE trichomonas vag. detection, direct probe Negati ve negati ve Not Available [facility] (Lab) [address], [place], [address], 09/28/2022 18:00:17 09/27/19 23 09/27/2022 HIV 1/2 ANTIG EN/AN TIBOD Y, REFLE X CONFI RMATI ON HIV antigen/anti body Nonrea ctive nonrea ctive HIV-1 antig en and HIV-1 /HIV- 2 antib odies were not detec hardy. No labor atory evide nce of HIV infec tion. Not Available [facility] (Lab) [address], [place], [address], 09/28/2022 21:47:07 09/27/19 23 09/27/2022 HEPAT ITIS C ANTIB SYLVIA SCREE N, REFLE X TO CONFI RMATI ON hepatitis C antibody Non-re active non-re active Antib odies to HCV Not Detec hardy, does not exclu de the possi bilit y of expos ure to HCV. Not Available [facility] (Lab) [address], [place], [address], 09/28/2022 21:47:07 09/27/19 23 09/27/2022 HEPAT ITIS B SURFA CE ANTIG EN hepatitis B surface antigen Non-re active non-re active This assay was perfo rmed using [employer] reage nts and test kits. Value s obtai paty with other assay metho ds or kits canno t be used inter rehman eably . Not Available [facility] (Lab) [address], [place], [address], 09/28/2022 21:47:07 09/27/19 23 09/27/2022 RPR SCREE N/REF RENAE TITER /FTA RPR screen Nonrea ctive nonrea ctive Not Available [facility] (Lab) [address], [place], [address], 09/28/2022 21:47:08 09/27/19 23 09/27/2022 HEPAT ITIS B CORE, IGM hepatitis B core IgM antibody Negati ve negati ve Not Available [facility] (Lab) [address], [place], [address], 09/28/2022 21:47:08 02/03/20 23 02/02/2023 CT/GC AND TRICH OMONA S VAGIN UCHE (RRNA ), URINE chlamydia trachomatis, PCR Negati ve negati ve Not Available [facility] (Lab) [address], [place], [address], 02/03/2023 15:20:50 02/03/20 23 02/02/2023 CT/GC AND TRICH OMONA S VAGIN UCHE (RRNA ), URINE neisseria gonorrhoeae, PCR Negati ve negati ve Not Available [facility] (Lab) [address], [place], [address], 02/03/2023 15:20:50 02/03/20 23 02/02/2023 CT/GC AND TRICH OMONA S VAGIN UCHE (RRNA ), URINE trichomonas vaginalis ribosomal RNA (rrna) Negati ve negati ve Not Available [facility] (Lab) [address], [place], [address], 02/03/2023 15:20:50 05/06/20 23 05/06/2023 HEPAT ITIS B SURFA CE ANTIG EN hepatitis B surface antigen Non-re active non-re active This assay was perfo rmed using [employer] reage nts and test kits. Value s obtai paty with other assay metho ds or kits canno t be used inter rehman eably . Not Available [facility] (Lab) [address], [place], [address], 05/09/2023 21:34:57 05/06/20 23 05/06/2023 HEPAT ITIS C ANTIB SYLVIA SCREE N, REFLE X TO CONFI RMATI ON hepatitis C antibody Non-re active non-re active Antib odies to HCV Not Detec hardy, does not exclu de the possi bilit y of expos ure to HCV. Not Available [facility] (Lab) [address], [place], [address], 05/09/2023 21:34:57 05/06/20 23 05/06/2023 HIV 1/2 ANTIG EN/AN TIBOD Y, REFLE X CONFI RMATI ON HIV antigen/anti body Nonrea ctive nonrea ctive HIV-1 antig en and HIV-1 /HIV- 2 antib odies were not detec hardy. No labor atory evide nce of HIV infec tion. Not Available [facility] (Lab) [address], [place], [address], 05/09/2023 21:34:57 05/06/20 23 05/06/2023 RPR SCREE N/REF RENAE TITER /FTA RPR screen Nonrea ctive nonrea ctive Not Available [facility] (Lab) [address], [place], [address], 05/09/2023 21:34:58 05/06/20 23 05/06/2023 HEPAT ITIS B CORE, IGM hepatitis B core IgM antibody Negati ve negati ve Not Available [facility] (Lab) [address], [place], [address], 05/09/2023 21:34:58 Result Notes None recorded. Problems Name Problem SNOMED Code Status Onset Date Resolution Date Notes Provider Name and Address Organization Details Recorded Time No current problems or disabili ty 950247816 Active Kassandra grossman [facility] 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 1 09:46:18 Problem Notes None recorded. Procedures Surgical History Date Name Laterality Status Provider Name and Address Organization Details Recorded Time 2 IUD Insertion completed CELIO Roth [address], [place], [address], [facility] 06/09/2022 16:18:06 5 removal of silastic tubes from ear completed Kelsie Rodriguez [facility] 09/04/2021 11:13:25 5 tonsilectomy/ adenoids completed Kelsie Rodriguez [facility] 03/28/2020 00:13:43 tonsilectomy/ adenoids completed Kassandra Bynum [facility] 05/26/2022 11:49:09 Imaging Results None recorded. [...] Prescrib ed Elsewher e: Yes Loca tion: [facility] M odify By: [email or web address] z Encoun ter DateTime : 10/24/19 09:30:00 AM Not Available [...] Available Vitals Date Recorded Body height Systolic And Diastolic Provider Name and Address Organization Details Last Updated DateTime 09/27/2022 156.85 cm 118/78 mm[Hg] Kassandra Bynum [facility] 09/27/2022 16:59:45 Date Recorded Body height Body mass index (BMI) [Percentile] Per age and sex Body mass index (BMI) Body weight Systolic And Diastolic Provider Name and Address Organization Details Last Updated DateTime 10/04/2022 156.85 cm 98 % 38.7 kg/m2 70527.4 g 115/81 mm[Hg] Divine Ríos [facility] 3 14:26:42 Date Recorded Body height Body mass index (BMI) [Percentile] Per age and sex Body mass index (BMI) Body weight Systolic And Diastolic Provider Name and Address Organization Details Last Updated DateTime 02/02/2023 156.85 cm 97 % 37.4 kg/m2 07245.2 5 g 121/82 mm[Hg] Geneva March [facility] 3 11:53:37 Date Recorded Body height Body mass index (BMI) Body mass index (BMI) [Percentile] Per age and sex Body weight Systolic And Diastolic Provider Name and Address Organization Details Last Updated DateTime 3 156.85 cm 37.4 kg/m2 97 % 92555.2 5 g 107/22 mm[Hg] Kassandra Bynum [facility] 3 11:00:14 Date Recorded Body height Systolic And Diastolic Provider Name and Address Organization Details Last Updated DateTime 07/07/2022 156.85 cm 107/72 mm[Hg] Kassandra Bynum [facility] 07/07/2022 14:00:15 Social History Question Answer Notes LastModified by Organizat ion Details LastModified Time Tobacco Smoking Status Never Smoker Femijessica Jones [facility], [facility] 05/06/2023 10:42:09 Do You Have An Advance Directive? No Information n ot available 02/01/2022 How Many Years Have You Consumed Alcohol? 0 Information not available 02/01/2022 Are You Blind Or Do You Have Difficulty Seeing? No [email or web address] Information n ot available 08/03/2021 What Is Your Level Of Caffeine Consumption? Occasional Information not available 02/01/2022 How Much Tobacco Do You Chew? None Information not available 02/01/2022 In The 14 Days Before Symptom Onset, Have You Had Close Contact With A Laboratory-confirm ed COVID-19 While That Case Was Ill? No Information n ot available 02/01/2022 In The 14 Days Before Symptom Onset, Have You Had Close Contact With A Person Who Is Under Investigation For COVID-19 While That Person Was Ill? No Information not available 02/01/2022 Have You Been To An Area Known To Be High Risk For COVID-19? No Information not available 02/01/2022 Are You Deaf Or Do You Have Serious Difficulty Hearing? No [email or web address] Information not available 08/03/2021 What Type Of Diet Are You Following? REGULAR [email or web address] Information n ot available 08/03/2021 What Is The Highest Grade Or Level Of School You Have Completed Or The Highest Degree You Have Received? [id number] Information not available 02/01/2022 What Was The Date Of Your Most Recent Tobacco Screening? 09/04/2021 [email or web address] Information not available 05/06/2023 Do You Use Protection During Sex? No Information not available 02/01/2022 Do You Use Your Seat Belt Or Car Seat Routinely? Yes Information not available 09/04/2021 Do You Have Smoke And Carbon Monoxide Detectors In Your Home? Yes [email or web address] Information not available 09/04/2021 How Much Tobacco Do You Smoke? No Information not available 03/28/2020 Do You Use Sunscreen Routinely? Yes [email or web address] Information not available 09/04/2021 How Many Years Have You Smoked Tobacco? 0 Information not available 02/01/2022 Have You Used IV Drugs? No Information not available 02/01/2022 Do You Have Difficulty Walking Or Climbing Stairs? No [email or web address] Information not available 05/06/2023 Sex: Female Functional Status Question Answer Note LastModified by Organizat ion Details LastModified Time Do you use any illicit or recreational drugs? No Information not available 02/01/2022 What is your level of alcohol consumption? None Information not available 02/01/2022 Do you or have you ever used smokeless tobacco? Never used smokeless tobacco [email or web address] Information not available 05/06/2023 Are you able to walk independently without assistance or assistive devices? YESWOREST [email or web address] Information not available 08/03/2021 Are you able to care for yourself independently? 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 No [email or web address] Information not available 05/06/2023 Do you or have you ever used e-cigarettes or vape? Never used electronic cigarettes [email or web address] Information not available 05/06/2023 What is your exercise level? Occasional [email or web address] Information not available 03/28/2020 Mental Status Question Answer Note LastModified by Organization D etails LastModified Time Do you feel stressed (tense, restless, nervous, or anxious, or unable to sleep at night)? [id number] Information not available 09/04/2021 Family History Relationship Description Onset Age of this Age Resolved Age Notes LastModified by Organization Details LastModified Time Maternal Aunt Benign neoplasm of brain Not available 2022 11:46:40 Maternal Aunt Blood coagulation disorder [email or web address] Not available 2022 11:46:41 Maternal Aunt Diabetes mellitus [email or web address] Not available 2022 11:54:50 Maternal Aunt Diabetes mellitus [email or web address] Not available 2022 11:54:53 Maternal Grandmother Benign neoplasm of brain Not available 2022 11:46:41 Maternal Grandmother Seizure disorder [email or web address] Not available 2022 11:46:41 Maternal Grandmother Diabetes mellitus [email or web address] Not available 2022 11:46:41 Maternal Grandmother Malignant neoplasm of breast [email or web address] Not available 2022 11:46:41 Maternal Grandmother Hypertensive disorder Not available 2022 11:46:41 Mother Malignant neoplasm of thyroid gland [email or web address] Not available 2022 11:46:41 Mother Cyst of ovary [email or web address] Not available 2022 11:46:41 Mother Post-traumat ic stress disorder [email or web address] Not available 2022 11:46:41 Mother Diabetes mellitus [email or web address] Not available 2022 11:54:58 Mother Disorder of thyroid gland [email or web address] Not available 2022 11:46:41 Maternal Uncle Diabetes mellitus [email or web address] Not available 2022 11:46:41 Maternal Grandfather Malignant neoplasm of colon [email or web address] Not available 2022 11:46:41 Notes:Family history of Canc er, ovarian Maternal aunt: Bleeding disorder, Diabetes mellitus, brain tumor non cancerous Maternal grandfather: Seizure disorder, Cancer, colon Maternal grandmother: brain tumor no cancerous, Diabetes mellitus, Cancer, breast, Hypertension Maternal uncle: Diabetes mellitus Mother: PTSD, Cancer, thyroid, ovarian cyst, Diabetes mellitus Medical History Condition Response Other N Blood Transfusion N Dermatologic Disorders N Gestational Diabetes N Anxiety Disorder Y Arthritis N Polyps N Infertility N Acid Reflux (GERD) N Cancer N Varicosities N Stroke N Neurologic/Epilepsy Y Fibromyalgia N Headaches N Kidney Disease N Heart Problems N Kidney or Bladder Problems N Eating Disorder N Art (IVF or FET) N Hepatitis/Liver Disease N No Past Medical History N Urinary Tract Infection N Asthma N Trauma/Violence N Thrombophilias N Allergies (Food, seasonal, environmental ) N Breast Cancer N Drug/Latex Allergies/Reactions N Lung Disease N Defects or Inherited Disease N Breast Problem N Hematologic disorders N Anesthesia Complications N History of STI N Deep Vein Thrombosis N Polycystic ovary syndrome N History of abnormal pap N Endometriosis N High Cholesterol N Thyroid Problems N GI Problems N Anemia N Psychiatric Illness Y Ovarian Cancer N Diabetes N Pulmonary (TB, Asthma) N Eczema N Abuse/Domestic Violence N Depression/ depression Y Heart Disease N Pre-Eclampsia N Hypertension N Osteoporosis N Gynecological History Statement/Question Response Abnormal Pap [...] ICD10 Code Diagnosis IMO Codes Diagnosis Note [id number] Rosalva Costello CNM [facility] [address] [place] [address] 03/28/2020 10:36:00 03/28/2020 11:40:41 Surveillance of oral contraception 564794668 Z30.41 [id number] Rosalva Costello CNM [facility] [address] [place] [address] 08/03/2021 09:37:47 08/03/2021 11:10:57 Venereal disease screening 759150988 Z11.3 urine sent [facility] 361266323 Z30.9 gave 5 samples of balcotra may have more if calls [id number] Rosalva Costello CNM [facility] [address],[place] [address] 09/04/2021 10:49:24 09/04/2021 11:49:30 Venereal disease screening 346128232 Z11.3 std and affirm sent f/u pending results reviewed vulvar care [id number] CELIO Roth [facility] [address],[place] [address] 02/01/2022 13:55:10 02/01/2022 14:49:57 Pain in pelvis 79241637 R10.2 Urine hCG (-) today. Patient would [...] and review of plan of care. Fatigue 94348442 R53.83 Venereal d isease screening 540035801 Z11.3 Sexually t ransmitted infectious disease 8259120 A64 [id number] Girish White MD [facility] [address],[place] [address] 02/04/2022 13:45:53 02/04/2022 14:26:58 Pain in pelvis 11062879 R10.2 [id number] CELIO Roth [facility] [address],[place] [address] 02/10/2022 11:42:54 02/10/2022 12:41:16 Pain in pelvis 19409303 R10.2 Pelvic pain has completely resolved, patient feeling well!We discussed normal pelvic u/s resultShe will call the office if symptoms return Time spent in visit is a total of 15 mins with at least 50% of visit consisting of counseling and review of plan of care. [id number] CELIO Roth [facility] [address],[place] [address] 04/27/2022 15:40:36 04/27/2022 16:29:34 Vaginitis 74488932 N76.0 Suspect yeast on examVagini tis panel sentSTI endocervic al testing sentVulvar care guidelines discussed in-depthDi scontinue use of scented toilet paperRTC if symptoms persist past treatment Time spent in visit is a total of 15 mins with at least 50% of visit consisting of counseling and review of plan of care. Venereal d isease screening 619215831 Z11.3 [id number] Jeanette Kenyon ALEN [facility] [address],[place] [address] 05/26/2022 11:38:13 05/26/2022 15:12:44 Vaginitis 24710051 N76.0 Suspect BV/yeast on examRx sentVagini tis panel sentSTI endocervic al testing sentVulvar care guideline discussed. Discontinu e vagisil wash Contracept ion care management 913876341 Z30.9 Patient would like different form of [...] plan of care. Venereal d isease screening 420009385 Z11.3 [id number] Jeanette Kenyon ALEN [facility] [address] [address] 06/09/2022 15:45:09 06/09/2022 16:25:12 Contraception care management 247523251 Z30.9 Insertion of intrauterine contraceptive device 45258421 Z30.430 She has been counseled on all [...] ing.RTC in 1 month for IUD check [id number] CELIO Roth [facility] [address],[facility] [place] [address] 07/07/2022 13:44:25 07/07/2022 14:29:08 IUD check 197985401 Z30.431 (+) IUD strings seen on examHappy with IUDRTC in 1 year or sooner if needed Time spent in visit is a total of 15 mins with at least 50% of visit consisting of counseling and review of plan of care. [id number] CELIO Roth [facility] [address] [address] 09/27/2022 16:42:48 09/28/2022 11:12:36 Venereal disease screening 945182464 Z11.3 Sexually t ransmitted infectious disease 1639676 A64 Vaginitis 81459571 N76.0 Suspect BV on examVagini tis panel sentSTI endocervic al testing sentBlood STI panel orderedVul [facility] care guidelines discussed in-depth-C otton underwear only, Sleep with no underwear, no vaginal washes/soa ps, free and clear laundry products, etcRTC if symptoms persist past treatment Time spent in visit is a total of 25 mins with at least 50% of visit consisting of counseling and review of plan of care. [id number] Esme Kelly MD [facility] [address] [address] 10/04/2022 13:55:34 10/05/2022 17:00:43 Mass of left breast 9263160998 3011671 N63.20 [id number] [facility] [address],[facility] [place] [address] 02/02/2023 11:46:30 02/02/2023 14:52:59 Venereal disease screening 992102747 Z11.3 Opts for urine std screenDecl ined serum std screen Counseled on safe sex, use of condoms encouraged , and partner treatment advised. Time spent in visit is a total of 15 mins with at least 50% of visit consisting of counseling and review of plan of care. [id number] Jeanette Kenyon ALEN [facility] [address],[facility] [place] [address] 05/06/2023 10:42:01 05/06/2023 11:44:57 Venereal disease screening 575018225 Z11.3 gc/ct/tric h testing sentblood STI panel orderedsaf e sexual practices discussed, condom use encouraged will update pt with results when availablen otify the office with any symptoms Time spent in visit is a total of 20mins with at least 50% of visit consisting of counseling and review of plan of care. Sexually t ransmitted infectious disease 5323241 A64 Health Concerns Section Related Observation LastModified by Organization Detai ls LastModified Time None Recorded Concern Status LastModified by Organization Details LastModified Time None Recorded Advance Directives Directive N: Payers Insurance Date Sequence Insurance Name Policy Number Policy Mcrae Covered Member ID Mcrae Member ID Guarantor Name 03/28/2020 1 *SELF PAY* Romie Plasencia 05/05/2023 1 [facility] PRIOR TO 08/15/20 (HMO) Arabella Plasencia [id number] Arabella Plasencia 05/05/2023 1 [facility] PRIOR TO 02/12/2021 (MEDICAID REPLACEMENT - HMO) Arabella Plasencia [id number] Arabella Plasencia 08/17/2021 1 *SELF PAY* Al dandy Plasencia 05/05/2023 1 [place] Arabella Plasencia [id number] Arabella Plasencia 05/09/2023 1 [facility] - DOS ON OR AFTER 21 (MEDICAID REPLACEMENT - HMO) Arabella Luis Angel [id number] Arabella Lusi Angel Notes Date Note Type Note Provider Name and Address Organization Details Recorded Time 07/07/2022 text/html Patient presents for IUD checkFeeling well since insertionNo AUB, denies any pelvic painShe would like a test today just for piece of mind CELIO Roth [address], [place], [address], [facility] 07/07/2022 14:14:00 09/27/2022 text/html Vaginal/Vulvar ProblemReported by Patient 22yoPresents for evaluation of vaginal d/c and odorSymptoms started about 2 weeks agoFishy odor, white d/cSA with steady male partnerKyleena IUD for BCDenies any n/v, fevers, pelvic pain, or flu-like symptoms CELIO Roth [address], [place], [address], [facility] 09/28/2022 09:31:27 10/04/2022 text/html Pt is a 22yo G0 here for a breast problem. She complains of bilateral breast pain for months and noticed a left lump just today and it is more tender there. Kyleena since May. No other breast changes. Lump is pea sized. Last mammogram: RASHAUN Kelyl MD [address], [place], [address], [facility] 10/23/2022 17:06:34 02/02/2023 text/html ROS as noted in the HPI Here today for updated STD screen due to unfaithful partner.Neg sx's Neg pain of abd/pelvis/flankNeg urinary sx'sNeg GI sx'sNeg N/V/F/C/DNeg Vag d/c, odor, irritation, itching CELIO Lo- [address], [place], [address], [facility] 02/02/2023 14:28:23 05/06/2023 text/html 22yopresents for STI testingreceived a text for [email or web address] that she may have been exposed to gonorrheashe was last SA 01/2023no symptomsneg vaginal symptomsneg pelvic painneg n/v/f kyleena IUD for BC CELIO Roth [address], [place], [address], [facility] 05/06/2023 11:44:36 OBGyn Episode No OBEpisode recorded.
--- OUTSIDE RECORDS SUMMARY | 2025-06-07 13:35 | XMS_ITS | Clinical Summary ---
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
--- OUTSIDE RECORDS SUMMARY | 2025-06-07 13:35 | XMS_ITS | Clinical Summary ---
Author Organization [facility] [employer] Address [address] [place] [address] Care Team Providers Care Flap Curer Name Role Phone None, Physician Primary Care Provider Unavailabl e Source Comments [facility] [employer],non-owned Affiliates and Associated Physician Practices is amultiple site organization consisting of ambulatory clinics and hospital sitesin [place], [place], [place] and [place]. This disclosure is being madepursuant to the Care Everywhere program and may not contain all information available regarding this patient. Last updated 18.[facility] [employer] Allergies No known active allergies Medications * [...] - 2025 11:59 PM CDT Hospital Encounter [facility] DI[facility]STIC RAD [facility] [address] [place] [address] Lina Minor, CURED MEAT PACKING SUPERVISOR-AIR TRAFFIC CONTROL SUPERVISOR Discharge Disposition: Home or Self Care 2025 1:45 PM CDT Office Visit [facility] [address] [place] [id number] Caprice Wheatley MD McCutchen, Kailey J, CURED MEAT PACKING SUPERVISOR-LISANDRA Closed fracture of shaft of left humerus with routine healing, unspecified fracture morphology, subsequent encounter (Primary Dx) 2025 Travel 04/16/2025 Orders Only [facility] [address], [facility] [place] [id number] Lina Minor, LUCIA-LISANDRA Closed fracture of shaft [...] PM CDT Legal Sex Female 5:41 AM CHIEF CONTROLLER Gender Identity Gender Non-conforming 10/28/2024 12:35 PM [...] your ability Medical Devices Implanted Type Area Software Integration Developer Device Identifier Shelf Expiration Date Model / Serial / Lot Plate 10 Hl Precontr Lmt Cntct Tpr Head - Sna Implanted:Qty: 1 on 11/08/2024 by Caprice Wheatley MD at [facility] Left: Elbow [employer] 06/14/2032 [id number] / NA / [id number] Screw 2.7mm 5mm 18mm Ft Cortx Slf-Tap - Sna Implanted:Qty: 1 on 11/08/2024 by Caprice Wheatley MD at [facility] Left: [employer] [id number] / NA / NA Screw 2.7mm 5mm 22mm 2.5mm Ft Slf-Tap - Sna Implanted:Qty: 1 on 11/08/2024 by Caprice Wheatley MD at [facility] Left: [employer] [id number] / NA / NA Screw 3.5mm 2.9mm 24mm T15 Ft Plv - Sna Implanted:Qty: 1 on 11/08/2024 by Caprice Wheatley MD at [facility] Left: [employer] 212.108 / NA / NA Screw 3.5mm 2.9mm 26mm T15 Ft Slf-Tap - Sna Implanted:Qty: 2 on 11/08/2024 by Caprice Wheatley MD at [facility] Left: [employer] 212.109 / NA / NA Screw 3.5mm 6mm 22mm 2.5mm Ft Slf-Tap - Sna Implanted:Qty: 3 on 11/08/2024 by Caprice Wheatley MD at [facility] Left: [employer] 204.822 / NA / NA Screw 3.5mm 6mm 24mm 2.5mm Ft Slf-Tap - Sna Implanted:Qty: 1 on 11/08/2024 by Caprice Wheatley MD at [facility] Left: [employer] [id number] / NA [...] MD on 2025 2:22 PM Lina Minor CURED MEAT PACKING SUPERVISOR-AIR TRAFFIC CONTROL SUPERVISOR DIAGNOSTIC IMAGING O RDERABLES Final Result from Last 3 Months Insurance [facility] Advance Directives * Full Code (Latest Code Status on File) Date Activated Date Inactivated Comments 11/08/2024 11:39 AM 11/09/2024 8:13 PM Care Teams Flap Curer Relationship Specialty Start Date End Date None, Physician PCP - General 10/25/24
--- OUTSIDE RECORDS SUMMARY | 2025-06-07 13:35 | XMS_ITS | Clinical Summary ---
Author Organization [facility] Address [address] [place] [address] Care Team Providers Care Hospital Laboratory Technician Name Role Phone Donta, May Hobbs [facility] Primary Care Provider + Allergies No [...] Comments Blood Pressure 122/87 08/17/2022 1:21 PM MANAGER SECONDARY Pulse 70 08/17/2022 1:21 PM MANAGER SECONDARY Temperature 36.4 C (97.6 F) 08/17/2022 1:21 PM MANAGER SECONDARY Respiratory Rate 18 08/17/2022 1:21 PM MANAGER SECONDARY Oxygen Saturation 100% 08/17/2022 1:21 PM MANAGER SECONDARY Inhaled Oxygen Concentration - - Weight 97.5 kg (215 lb) 08/17/2022 1:21 PM MANAGER SECONDARY Height 157.5 cm (5' 2) 08/17/2022 1:21 PM MANAGER SECONDARY Body Mass Index 39.32 08/17/2022 1:21 PM MANAGER SECONDARY Plan of Treatment Health Maintenance Due Date [...] topic Insurance [employer] [place] Care Teams Hospital Laboratory Technician Relationship Specialty Start Date End Date May Longo, RV SERVICE TECHNICIAN- [address] [address] PCP - General NURSE PRACTITIONER 08/15/21
[2025-06-07 13:38] VITALS: BP 111/74; PULSE 90; RESP 20; O2SAT 99
[2025-06-07 13:39] LABS: Alanine Aminotransferase 16 U/L (6-35); Albumin Level 4.7 g/dL (3.5-5.1); Alkaline Phosphatase 96 U/L (38-126); Anion Gap 13 mmol/L (4-12); Aspartate Amino Transferase 17 U/L (14-36); Bilirubin,Total 0.6 mg/dL (0.2-1.3); Blood Urea Nitrogen 11 mg/dL (7-17); Calcium 8.9 mg/dL (8.4-10.2); Carbon Dioxide 20 mmol/L (22-30); Chloride 104 mmol/L (98-107); Estimated CRCL calculation 139 ml/min; Estimated Glomerular Filt Rate > 60; Glucose 94 mg/dL (65-110); Lipase 36 U/L (23-300); Potassium 3.9 mmol/L (3.4-5.0); Sodium 137 mmol/L (137-145); Total Protein 8.4 g/dL (6.3-8.2)
[2025-06-07 13:44] LABS: Troponin I < 0.012 ng/mL (0.000-0.034)
--- NOTE | 2025-06-07 14:20 | ED_ITS ---
HPI - General Adult General Chief complaint: Abdominal Pain Stated complaint: abd pain Time Seen by Provider: 06/07/25 12:57 History of Present Illness HPI narrative: This patient is a 25-year-old female who presents ER with abdominal pain. She has been intermittently taking her psychiatric medication but if she is running out. Today she took it as well as some pain medication other medicine and gave her an upset stomach and some mild fullness in her chest. Mild diarrhea. No constipation. No fevers or chills or sweats. Patient would like a refill of her medicine and she is looking to establish care with a pcp. Related Data Home Medications ?Medication ?Instructions ?Recorded ?Confirmed ?Last Taken ?Type citalopram 40 mg tablet mg 07/11/20 Unknown History norethindrone acetate 1 mg-ethinyl tablet 07/11/20 Un known History estradiol 20 mcg tablet Allergies Allergy/AdvReac Type Severity Reaction Status Date / Time No Known Allergies Allergy Mild Verified 06/07/25 12:14 Review of Systems 2 Review of Systems: All systems reviewed & are unremarkable except as noted in HPI and below Constitutional: Constitutional: Reports no additional constitutional complaints ENT: Reports system reviewed and no additional complaints, except as documented Cardiovascular: Cardiovascular: Reports no additional cardiovascular complaints Respiratory: Respiratory: Reports no additional respiratory complaints Musculoskeletal: Musculoskeletal: Reports no additional musculoskeletal complaints PMFSH Past Medical History Medical History (Updated 06/07/25 @ 14:26 by Silas Vargas MD) Depression Exam 2 Narrative: GENERAL: Well-appearing, well-nourished, and in no acute distress. HEAD: Normocephalic, atraumatic. ENT: Mucous membranes moist. CHEST: Clear to auscultation. No respiratory distress. HEART: Regular rate and rhythm. Normal peripheral pulses. ABDOMEN: Soft, nontender, nondistended. EXTREMITIES: Normal range of motion. No edema. SKIN: Warm, dry, no rash. NEURO: Alert and oriented x3. PSYCH: Normal mood and affect. Course Course Emergency Course: Labs unremarkable. Benign exam. Appropriate for discharge home. Will refill psychiatric medication. Vital Signs Vital signs: Vital Signs Temperature 98.2 F 06/07/25 12:11 Pulse Rate 91 06/07/25 12:11 Respiratory Rate 18 06/07/25 12:11 Blood Pressure 117/68 06/07/25 12:11 Pulse Oximetry 100 10/24/25 12:11 Oxygen Delivery Room Air 06/07/25 12:11 Temperature 98.2 F 06/07/25 12:11 Pulse Rate 90 06/07/25 13:38 Respiratory Rate 20 06/07/25 13:38 Blood Pressure 111/74 06/07/25 13:38 Pulse Oximetry 99 06/07/25 13:38 Oxygen Delivery Room Air 06/07/25 12:11 Medical Decision Making Medical Records Medical records narrative: Cholecystitis, gastroenteritis, appendicitis, GERD Vital Signs Vital Signs: Vital Signs Temperature 98.2 F 06/07/25 12:11 Pulse Rate 91 06/07/25 12:11 Respiratory Rate 18 06/07/25 12:11 Blood Pressure 117/68 06/07/25 12:11 Pulse Oximetry 100 06/07/25 12:11 Oxygen Delivery Room Air 06/07/25 12:11 Temperature 98.2 F 06/07/25 12:11 Pulse Rate 90 06/07/25 13:38 Respiratory Rate 20 06/07/25 13:38 Blood Pressure 111/74 06/07/25 13:38 Pulse Oximetry 99 06/07/25 13:38 Oxygen Delivery Room Air 06/07/25 12:11 Lab Data Lab results reviewed: Yes I reviewed the patient's lab results. 06/07/25 13:12 06/07/25 13:12 Labs: Lab Results 06/07/25 Range/Units 13:12 WBC 7.5 (4.5-10.0) K/mm3 RBC 4.45 (4.2-5.4) M/mm3 Hgb 13.3 (12.0-15.0) g/dL Hct 40.1 (37.0-47.0) % MCV 90.1 (80-100) fl MCH 29.9 (26-34) pg MCHC 33.2 (32-36) g/dl RDW 12.2 (11.5-14.5) % Plt Count 319 (150-375) k/mm3 MPV 9.6 (7.4-10.4) fl Immature Gran % (Auto) 0.3 (0-0.5) % Neut % (Auto) 81.6 H (45.5-73.1) % Lymph % (Auto) 11.8 L (18.3-44.2) % [place] % (Auto) 5.9 (2.6-8.5) % Eos % (Auto) 0.1 (0-4.4) % Baso % (Auto) 0.3 (0.2-1.2) % Lymph # (Auto) 0.88 L (0.9-3.2) K/mm3 [place] # (Auto) 0.4 (0.1-0.6) K/mm3 Eos # (Auto) 0.0 (0-0.3) K/mm3 Baso # (Auto) 0.0 (0.0-0.1) K/mm3 Abs Immat Gran (auto) 0.02 (0.00-0.031) K/mm3 Absolute Neuts (auto) 6.1 (1.3-6.7) K/mm3 Absolute Nucleated RBC 0.000 (0.0-0.012) K/mm3 Nucleated RBC % 0.0 (0.0-0.2) % PT 13.6 (11.1-14.7) Seconds INR 1.0 APTT 29.6 (22.3-36.8) Seconds Sodium 137 (137-145) mmol/L Potassium 3.9 (3.4-5.0) mmol/L Chloride 104 (98-107) mmol/L Carbon Dioxide 20 L (22-30) mmol/L Anion Gap 13 H (4-12) mmol/L BUN 11 (7-17) mg/dL Creatinine 0.59 L (0.7-1.0) mg/dL Estim Creat Clear Calc 139 ml/min Estimated GFR > 60 (59 - ) Glucose 94 (65-110) mg/dL Calcium 8.9 (8.4-10.2) mg/dL Total Bilirubin 0.6 (0.2-1.3) mg/dL AST 17 (14-36) U/L ALT 16 (6-35) U/L Alkaline Phosphatase 96 (38-126) U/L Troponin I < 0.012 (0.000-0.034) ng/mL Total Protein 8.4 H (6.3-8.2) g/dL Albumin 4.7 (3.5-5.1) g/dL Lipase 36 (23-300) U/L Imaging Data Radiologist's impression: ITS Impressions Chest X-Ray 06/07/25 12:56 IMPRESSION: 1. No acute cardiopulmonary findings. ECG Data EKG #1: ECG completion date: 06/07/25 ECG completion time: 12:13 EKG Interpretation: normal rate (92), sinus rhythm, non-specific ST changes, normal QRS and normal QT Discharge Plan Discharge Clinical Impression: Medication refill, Stomach upset Patient Disposition: Home Condition: Stable Instructions: Acute Abdominal Pain (ED) Additional Instructions: Return to the emergency department if you develop severe abdominal pain, severe nausea and vomiting to the point where you are unable to keep down fluids, if you develop chest pain or difficulty breathing, blood in your stool, dizziness or fainting, or if you develop any other new or concerning symptoms as these could be signs of more serious medical illness. Try to stay well hydrated. Patient Language: Niuean Prescriptions: New sertraline 100 mg tablet 100 mg PO DAILY Qty: 14 0RF bupropion HCl [Wellbutrin XL] 150 mg tablet extended release 24 hr 150 mg PO QAM Qty: 14 0RF No Action citalopram 40 mg tablet norethindrone ac-eth estradiol 1-20 mg-mcg tablet ondansetron 4 mg tablet,disintegrating 4 mg PO Q8H Qty: 14 0RF Follow-up/Referrals: Teri Schreiber DO [Physician, Family Practice] - 1 Week PHYSICIAN,BIOMEDICAL FIELD SERVICE ENGINEER [Primary Care Provider, Internal Medicine]
[2025-06-07 14:55] VITALS: BP 111/74; PULSE 72; RESP 16
== END 2025-06-07 14:56 | disposition home or self-care (01) ==
PROVIDERS: Emergency Provider Emergency Medicine
DX: R10.9 Unspecified abdominal pain (principal); Z76.0 Encounter for issue of repeat prescription; F32.A Depression, unspecified
CPT/HCPCS: 36415; 71046; 80053; 83690; 84484; 85025; 85610; 85730; 93005; 96360; 99284; J7030